=== PATIENT | female | born 1980 | race Caucasian/White ===

== ENCOUNTER 2020-05-18 18:55 | Observation (INO) | payer OTHER, SELFPAY ==
[2020-05-18] VITALS (11 sets, daily range): BP systolic 130–186; BP diastolic 87–105; PULSE 97–141; RESP 15–22; TEMP 37.7–38.8; O2SAT 97–100; BMI 21.0; BMI 22.4
--- NOTE | 2020-05-18 19:07 | ECG_ITS ---
APPROVED REPORT Exam: Resting ECG HR:136 bpm ECG Measurements Heart Rate 136 AXES [place] 128 P 57 QRSd 78 QRS 71 QT 270 T 46 QTc 406 <Conclusion> Sinus tachycardia Otherwise normal ECG Electronically signed by : Mark Mejia, 05/20/2020 20:00:36
--- NOTE | 2020-05-18 19:13 | XR_ITS ---
PROCEDURE: XR CHEST PORTABLE CLINICAL HISTORY: back pain, shortness of breath COMPARISON: CR CXR1 CHEST-PORTABLE from 04/09/2015 FINDINGS: The cardiomediastinal silhouette and pulmonary vascularity are within normal limits. The lungs are clear without infiltrates, suspicious nodules, or pleural effusions. Calcified granulomas present in the right upper lobe. Calcified granuloma left upper lobe medially versus vessel. No acute bony abnormalities. IMPRESSION: No acute findings. Dictated by: Don Buenrostro MD 05/18/2020 22:02 Don Buenrostro MD in [place] 05/18/2020 22:02
--- NOTE | 2020-05-18 19:22 | HMH.EDGENADL ---
ED Disposition Clinical Impression: COVID-19, Tachycardia UTI (urinary tract infection) Qualifiers: Urinary tract infection type: acute cystitis Hematuria presence: without hematuria Qualified Code(s): N30.00 - Acute cystitis without hematuria Disposition: Admitted as Observation Condition on Discharge: Fair Referrals: Nitesh Ponce [Primary Care Provider] - Time of Disposition: 21:27 - Critical Care Critical Care Time: No Attestation: On 05/18/20, the high probability of a clinically significant, sudden or life threatening deterioration of the following system(s) required my full and direct attention, intervention and personal management. The time I documented below is in addition to time spent performing reported procedures but includes the following listed in this critical care notation. Medical Decision Making - Medical Records Medical records reviewed: Yes: I reviewed the patient's medical records. - Hi Inquiry Pt receiving controlled substance: No Vital Signs: 05/18/20 19:08 05/18/20 19:30 05/18/20 20:00 Temperature 101.1 F H Temperature Source Oral Pulse Rate [Right Radial] 141 H 136 H 126 H Respiratory Rate 15 22 22 Blood Pressure [Right Arm] 186/105 H 159/103 H 149/101 H Blood Pressure Mean [Right Arm] 132 121 117 Blood Pressure Source [Right Arm] Automatic Cuff Automatic Cuff Blood Pressure Position [Right Arm] Supine Supine 02 Sat by Pulse Oximetry 99 99 100 Oxygen Delivery Method Room Air Room Air Room Air 05/18/20 20:20 05/18/20 20:42 Temperature 101.9 F H 101.8 F H Temperature Source Oral Oral Pulse Rate [Right Radial] 124 H 120 H Respiratory Rate 20 16 Blood Pressure [Right Arm] 149/100 H 150/98 H Blood Pressure Mean [Right Arm] 116 115 Blood Pressure Source [Right Arm] Automatic Cuff Automatic Cuff Blood Pressure Position [Right Arm] Sitting Sitting 02 Sat by Pulse Oximetry 98 99 Oxygen Delivery Method Room Air Room Air - Lab Data Lab Results 05/18/20 19:15: WBC 12.6 H, RBC 3.66 L, Hgb 10.0 L, Hct 31.0 L, MCV 84.9, MCH 27.5, MCHC 32.4, RDW 14.1, Plt Count 359, MPV 7.1 L, Neut % (Auto) 86.5 H, Lymph % (Auto) 8.2 L, [place] % (Auto) 5.1, Eos % (Auto) 0.2, Baso % (Auto) 0.1, Neut # (Auto) 10.9 H, Lymph # (Auto) 1.0, [place] # (Auto) 0.6, Eos # (Auto) 0.0, Baso # (Auto) 0.0, Total Counted 100, Neutrophils % (Manual) 83 H, Band Neutrophils % 10.0 H, Lymphocytes % (Manual) 6 L, Monocytes % (Manual) 1 L, Platelet Estimate Normal, RBC Morphology Normal, Rouleaux 2+ 05/18/20 19:15: Sodium 134 L, Potassium 3.3 L, Chloride 97 L, Carbon Dioxide 28, Anion Gap 12.3, BUN 5 L, Creatinine 0.70, Estimated Creat Clear 91, Estimated GFR 93, Est GFR ( Amer) 112, Glucose 119 H, Calcium 9.2, Total Bilirubin 0.4, AST 23, ALT 17, Alkaline Phosphatase 98, Troponin I < 0.01, Total Protein 7.2, Albumin 3.7, Globulin 3.5 H, Albumin/Globulin Ratio 1.1 05/18/20 19:15: Lactate 1.4 05/18/20 19:15: Urine Color Yellow, Urine Appearance Cloudy, Urine pH 7.5, Ur Specific [place] 1.020, Urine Protein Negative, Urine Glucose (UA) Negative, Urine Ketones Negative, Urine Blood Negative, Urine Nitrate Negative, Urine Bilirubin Negative, Urine Urobilinogen 0.2, Ur Leukocyte Esterase 1+ A, Urine WBC 10-20, Ur Squamous Epith Cells 10-20, Urine Bacteria 4+ 05/18/20 19:15: Urine HCG, Qual Negative 05/18/20 19:15: SARS-CoV-2 IgG Ab (Rapid) Positive A, SARS-CoV-2 IgM Ab (Rapid) Negative Result diagrams: 05/18/20 19:15 05/18/20 19:15 Orders (Tests/Meds): ED MEDICATIONS Generic Name Dose Route Start Last Admin Trade Name Freq PRN Reason Stop Dose Admin Sodium Chloride 1,000 mls @ 999 mls/hr 05/18/20 19:15 05/18/20 19:17 Sod Chlor 0.9% 1000ml Bag IV 05/18/20 20:15 999 mls/hr .Q1H1M JOSÉ MIGUEL Administration Sodium Chloride 1,000 mls @ 999 mls/hr 05/18/20 20:30 05/18/20 20:24 Sod Chlor 0.9% 1000ml Bag IV 05/18/20 21:30 999 mls/hr .Q1H1M JOSÉ MIGUEL Administration Ceftriaxone Sodium 1 gm/ 50 mls @ 100 mls/hr
--- NOTE | 2020-05-18 19:26 | PC.NURSE ---
pt placed on costume maker, vitals q 30, bed side toliet at bedside, call light given.
[2020-05-18 19:35] LABS: Microscopic, Urine URINE MICROSCOPIC (MICROSCOPIC)
[2020-05-18 19:41] LABS: Appearance,Urine CLOUDY (Clear); Bilirubin,Urine Negative (Negative); Blood, Urine Negative (Negative); Color,Urine YELLOW (Yellow); Glucose,Urine (UA) Negative (Negative); Ketones,Urine Negative (Negative); Leukocyte Esterase,Urine 1+ (Negative); Nitrate,Urine Negative (Negative); PH,Urine 7.5 (5.0-8.5); Protein,Urine Negative (Negative); Urobilinogen,Urine 0.2 EU/dl (0.2)
[2020-05-18 19:42] LABS: Basophils % 0.1 % (0.1-2.0); Eosinophils % 0.2 % (0.1-12.0); Lymphocytes % 8.2 % (10-50); Mean Corpuscular HGB Conc 32.4 g/dL (31.8-35.4); Mean Corpuscular Hemoglobin 27.5 pg (27.0-31.2); Mean Corpuscular Volume 84.9 fl (81-99); Mean Platelet Volume 7.1 fl (7.4-10.4); Monocytes # 0.6 K/mm3 (0.1-1.0); Monocytes % 5.1 % (1.7-9.3); Neutrophils # 10.9 K/mm3 (1.8-7.8); Neutrophils % 86.5 % (37.0-80.0); Platelet Count 359 K/mm3 (142-424); Red Blood Count 3.66 M/mm3 (4.20-5.40); Red Cell Distribution Width 14.1 % (11.5-17.5); White Blood Count 12.6 K/mm3 (4.8-10.8)
[2020-05-18 19:43] LABS: MANUAL DIFFERENTIAL MANUAL DIFFERENTIAL (MANUAL DIFF)
[2020-05-18 19:48] LABS: Bacteria,Urine 4+ /lpf
[2020-05-18 19:49] LABS: Urine Pregnancy, HCG Qual. Negative (Negative)
[2020-05-18 19:59] LABS: Alanine Aminotransferase 17 U/L (12-78); Albumin Level 3.7 g/dl (3.5-5.0); Albumin/Globulin Ratio 1.1 (1.1-1.8); Alkaline Phosphatase 98 U/L (38-126); Anion Gap 12.3 mEq/L (5-15); Aspartate Amino Transferase 23 U/L (14-36); Bilirubin,Total 0.4 mg/dl (0.2-1.3); Blood Urea Nitrogen 5 mg/dl (7-17); Calcium 9.2 mg/dl (8.4-10.2); Carbon Dioxide 28 mmol/L (22.0-30.0); Chloride 97 mmol/L (98-107); Creatinine Clearance Estimated 91 mL/min (50-200); Estimated Glomerular Filt Rate 93 ml/min (>60); GFR (African American) 112 ML/MIN (>60); Globulin 3.5 g/dL (1.3-3.2); Glucose 119 mg/dl (74-100); Lactic Acid 1.4 mmol/L (0.7-2.1); Potassium 3.3 mmoL/L (3.5-5.1); Sodium 134 mmol/L (136-145); Total Protein,Serum 7.2 g/dl (6.3-8.2)
[2020-05-18 20:13] LABS: Lymphocytes % 6 % (10-50); Monocytes % 1 % (2-9); Neutrophils % 83 % (42-76); Platelet Estimate Normal; RBC Morphology Normal; Rouleaux 2+; Total Cells Counted 100; Troponin I < 0.01 ng/ml (0.00-0.034)
[2020-05-18 20:16] LABS: Coronavirus 19 IgG Antibody Positive (Negative); Coronavirus 19 IgM Antibody Negative (Negative)
--- NOTE | 2020-05-18 21:15 | PC.NURSE ---
Dr. Stevenson smith
--- NOTE | 2020-05-18 21:21 | PC.NURSE ---
speaking with Dr. Gamino who advised he wasn't on for service and that it was Dr. Travis. Dr. Harris paged at this time
--- NOTE | 2020-05-18 21:23 | PC.NURSE ---
speaking with Dr. Harris
[2020-05-19] VITALS (8 sets, daily range): BP systolic 112–144; BP diastolic 68–94; PULSE 93–110; RESP 16–22; TEMP 37–38.1; O2SAT 96–99; BMI 22.5
--- NOTE | 2020-05-19 04:12 | PC.NURSE ---
pt has rested well this shift. pt is A&Ox4 and ambulates independently t/o room. pt has tolerated RA appropriately with o2 sats in the upper 90's-100. Lung sounds are clear t/o other than BL bases have fine crackles. Pt has c/o nausea x1 this shift, PRN meds administered per MAR. Pt has c/o LUDWIG x1 this shift PRN meds administered per MAR. Vital signs have remained stables with episodes of tachycardia at time. Pt has had an excellent appetite, requesting multiple snacks and drinks this shift. Call light is within reach. No other complaints or acute changes at this time. Will continue to monitor.
[2020-05-19 06:52] LABS: Basophils % 0.1 % (0.1-2.0); Eosinophils % 0.2 % (0.1-12.0)
[2020-05-19 07:00] LABS: Chloride 107 mmol/L (98-107); Lymphocytes # 1.1 K/mm3 (0.7-4.5); Lymphocytes % 8.2 % (10-50); Mean Corpuscular HGB Conc 32.5 g/dL (31.8-35.4); Mean Corpuscular Hemoglobin 28.2 pg (27.0-31.2); Mean Platelet Volume 7.7 fl (7.4-10.4); Monocytes # 1.1 K/mm3 (0.1-1.0); Monocytes % 7.9 % (1.7-9.3); Neutrophils # 11.4 K/mm3 (1.8-7.8); Neutrophils % 83.7 % (37.0-80.0); Platelet Count 284 K/mm3 (142-424); Potassium 3.6 mmoL/L (3.5-5.1); Red Cell Distribution Width 14.3 % (11.5-17.5); Sodium 137 mmol/L (136-145); White Blood Count 13.6 K/mm3 (4.8-10.8)
[2020-05-19 07:03] LABS: Blood Urea Nitrogen 4 mg/dl (7-17); Creatinine Clearance Estimated 106 mL/min (50-200); Estimated Glomerular Filt Rate 111 ml/min (>60); GFR (African American) 134 ML/MIN (>60)
[2020-05-19 07:04] LABS: Anion Gap 9.6 mEq/L (5-15); Carbon Dioxide 24 mmol/L (22.0-30.0); Glucose 115 mg/dl (74-100)
[2020-05-19 07:08] LABS: Hemoglobin 8.8 g/dL (12.2-16.2)
[2020-05-19 07:41] LABS: Calcium 8.2 mg/dl (8.4-10.2)
--- NOTE | 2020-05-19 08:40 | HMH.ACPN2 ---
Internal Medicine - PN: Subj *Date: 05/19/20 *Time: 08:40 Interval history: Patient came to ER last night complaining of weakness and pain in legs and back associated with fever. She was diagnosed with Covid 19 on or about 05/10/20. states she was exposed at a support group meeting earlier in the month. Pt received Rocephin, IVF and antipyretics in the ER and is feeling better now. Ate breakfast this morning and would like to go home later today if possible Exam Vital signs and Labs for Last 24 Hours: Temp Pulse Resp BP Pulse Ox 99.5 F 106 H 20 119/90 96 05/19/20 07:57 05/19/20 07:57 05/19/20 07:57 05/19/20 07:57 05/19/20 08:00 Laboratory Results - last 24 hr 05/18/20 19:15: WBC 12.6 H, RBC 3.66 L, Hgb 10.0 L, Hct 31.0 L, MCV 84.9, MCH 27.5, MCHC 32.4, RDW 14.1, Plt Count 359, MPV 7.1 L, Neut % (Auto) 86.5 H, Lymph % (Auto) 8.2 L, [place] % (Auto) 5.1, Eos % (Auto) 0.2, Baso % (Auto) 0.1, Neut # (Auto) 10.9 H, Lymph # (Auto) 1.0, [place] # (Auto) 0.6, Eos # (Auto) 0.0, Baso # (Auto) 0.0, Total Counted 100, Neutrophils % (Manual) 83 H, Band Neutrophils % 10.0 H, Lymphocytes % (Manual) 6 L, Monocytes % (Manual) 1 L, Platelet Estimate Normal, RBC Morphology Normal, Rouleaux 2+ 05/18/20 19:15: Sodium 134 L, Potassium 3.3 L, Chloride 97 L, Carbon Dioxide 28, Anion Gap 12.3, BUN 5 L, Creatinine 0.70, Estimated Creat Clear 91, Estimated GFR 93, Est GFR ( Amer) 112, Glucose 119 H, Calcium 9.2, Total Bilirubin 0.4, AST 23, ALT 17, Alkaline Phosphatase 98, Troponin I < 0.01, Total Protein 7.2, Albumin 3.7, Globulin 3.5 H, Albumin/Globulin Ratio 1.1 05/18/20 19:15: Lactate 1.4 05/18/20 19:15: Urine Color Yellow, Urine Appearance Cloudy, Urine pH 7.5, Ur Specific [place] 1.020, Urine Protein Negative, Urine Glucose (UA) Negative, Urine Ketones Negative, Urine Blood Negative, Urine Nitrate Negative, Urine Bilirubin Negative, Urine Urobilinogen 0.2, Ur Leukocyte Esterase 1+ A, Urine WBC 10-20, Ur Squamous Epith Cells 10-20, Urine Bacteria 4+ 05/18/20 19:15: Urine HCG, Qual Negative 05/18/20 19:15: SARS-CoV-2 IgG Ab (Rapid) Positive A, SARS-CoV-2 IgM Ab (Rapid) Negative 05/19/20 06:40: WBC 13.6 H, RBC 3.10 L, Hgb 8.8 L D, Hct 27.0 L, MCV 87.0, MCH 28.2, MCHC 32.5, RDW 14.3, Plt Count 284, MPV 7.7, Neut % (Auto) 83.7 H, Lymph % (Auto) 8.2 L, [place] % (Auto) 7.9, Eos % (Auto) 0.2, Baso % (Auto) 0.1, Neut # (Auto) 11.4 H, Lymph # (Auto) 1.1, [place] # (Auto) 1.1 H, Eos # (Auto) 0.0, Baso # (Auto) 0.0 05/19/20 06:40: Sodium 137, Potassium 3.6, Chloride 107, Carbon Dioxide 24, Anion Gap 9.6, BUN 4 L, Creatinine 0.60, Estimated Creat Clear 106, Estimated GFR 111, Est GFR ( Amer) 134, Glucose 115 H, Calcium 8.2 L D I & O for Last 24 hours: Intake & Output 05/16/20 05/17/20 05/18/20 05/19/20 23:59 23:59 23:59 23:59 Intake Total 1788 / 1788 Output Total 950 / 950 Balance 838 / 838 Weight 119 lb 119 lb 3 oz Microbiology Reports for the Last 24 Hours: Microbiology 05/18/20 19:15 Urine,Clean Catch Urine Culture - Preliminary Gram Negative Rods - Constitutional no acute distress - *Routine HEENT Exam Head: Present: normocephalic Eye: Present: EOMI, PERRL ENT: Present: mucous membranes moist - *Routine Neck Exam Present: supple. Absent: lymphadenopathy - *Routine Respiratory Exam Present: CTA bilaterally - *Routine Cardiovascular Exam Present: RRR, tachycardia (HR 110) - *Routine Abdominal Exam Present: soft, normoactive bowel sounds. Absent: tenderness - *Routine Extremities Exam Absent: cyanosis, clubbing, edema - *Routine Skin Exam Present: warm. Absent: rash - *Routine Neurological Exam Present: alert, oriented X3 Assessment and Plan (1) SIRS (systemic inflammatory response syndrome) Current visit: Yes Status: Acute Category: Medical Code(s): R65.10 - Systemic inflammatory response syndrome (SIRS) of non-infectious origin without acute organ dysfunction
--- NOTE | 2020-05-19 10:43 | PC.NURSE ---
noticed er admit order stated ICU. verified with md that it was supposed to be medsurg overflow/covid positive
--- NOTE | 2020-05-19 12:02 | HMH.HPDC ---
General - General Admission date:: 05/18/20 Discharge date: 05/19/20 *Admission Date: 05/18/20 *Chief complaint: Fever *History of present illness: 40 year old female patient of Dr. Nitesh Ponce, presented to [facility] ER last night complaining of fever associated with muscle aches in her legs and back and feeling week. Patient reports she tested positive for Covid 19 on May 10. She states she was exposed at a support group meeting earlier in the month. She had been fairly symptom free until the past few days when she began to have fever and body aches and a slight cough. She denies sore throat and shortness of breath. [facility] History Medical History: Reports:: Gastroesophageal Reflux Disease(GERD) Denies:: Cancer, Diabetes Mellitus Type 1, Diabetes Mellitus Type 2 *Have you ever received a pneumonia vaccine?: No *Have you received a flu vaccine this season?: No Other Medical History: Reports: Anemia, Other (narcotic addiction, h/o suboxone treatment) Other Surgeries: Yes: , Other (nasal) - *Social History Smoking Status: Current every day smoker Tobacco Type: cigarettes # Packs/Day (cigarettes): 1 Alcohol Intake: former Alcohol Intake Frequency:: holidays/special occasions only Substance Use Type: marijuana, crack/cocaine, painkillers, prescription drug *Occupational Status:: employed *Travel in the last 8 weeks: None - Psychiatric History Expresses thoughts of harming self/others: None Pschychiatric History:: Reports:: Bipolar Disorder Family Hx:: Anemia, Coronary Artery Disease, Heart Attack, Hyperlipidemia, Hypertension, Substance abuse, Alcoholism Review of Systems - Constitutional Reports body ache(s) - Eyes Denies blurry vision - ENT Denies difficulty swallowing - *Cardiovascular Reports fast heart rate - *Respiratory Reports shortness of breath, Denies chest congestion, Denies cough - *Gastrointestinal Denies abdominal pain - *Genitourinary Reports urinary urgency - *Musculoskeletal Reports back pain, Reports body aches - Integumentary/Breasts Denies rash - *Neurologic Denies dizziness, Denies headache(s) - Hematologic/Lymphatic Denies easy bruising Exam Vital signs and Labs for Last 24 Hours: Temp Pulse Resp BP Pulse Ox 99.5 F 106 H 20 119/90 96 05/19/20 07:57 05/19/20 07:57 05/19/20 07:57 05/19/20 07:57 05/19/20 08:00 Laboratory Results - last 24 hr 05/18/20 19:15: WBC 12.6 H, RBC 3.66 L, Hgb 10.0 L, Hct 31.0 L, MCV 84.9, MCH 27.5, MCHC 32.4, RDW 14.1, Plt Count 359, MPV 7.1 L, Neut % (Auto) 86.5 H, Lymph % (Auto) 8.2 L, [place] % (Auto) 5.1, Eos % (Auto) 0.2, Baso % (Auto) 0.1, Neut # (Auto) 10.9 H, Lymph # (Auto) 1.0, [place] # (Auto) 0.6, Eos # (Auto) 0.0, Baso # (Auto) 0.0, Total Counted 100, Neutrophils % (Manual) 83 H, Band Neutrophils % 10.0 H, Lymphocytes % (Manual) 6 L, Monocytes % (Manual) 1 L, Platelet Estimate Normal, RBC Morphology Normal, Rouleaux 2+ 05/18/20 19:15: Sodium 134 L, Potassium 3.3 L, Chloride 97 L, Carbon Dioxide 28, Anion Gap 12.3, BUN 5 L, Creatinine 0.70, Estimated Creat Clear 91, Estimated GFR 93, Est GFR ( Amer) 112, Glucose 119 H, Calcium 9.2, Total Bilirubin 0.4, AST 23, ALT 17, Alkaline Phosphatase 98, Troponin I < 0.01, Total Protein 7.2, Albumin 3.7, Globulin 3.5 H, Albumin/Globulin Ratio 1.1 05/18/20 19:15: Lactate 1.4 05/18/20 19:15: Urine Color Yellow, Urine Appearance Cloudy, Urine pH 7.5, Ur Specific [place] 1.020, Urine Protein Negative, Urine Glucose (UA) Negative, Urine Ketones Negative, Urine Blood Negative, Urine Nitrate Negative, Urine Bilirubin Negative, Urine Urobilinogen 0.2, Ur Leukocyte Esterase 1+ A, Urine WBC 10-20, Ur Squamous Epith Cells 10-20, Urine Bacteria 4+ 05/18/20 19:15: Urine HCG, Qual Negative 05/18/20 19:15: SARS-CoV-2 IgG Ab (Rapid) Positive A, SARS-CoV-2 IgM Ab (Rapid) Negative 05/19/20 06:40: WBC 13.6 H, RBC 3.10 L, Hgb 8.8 L D, Hct 27.0 L, MCV 87.0, MCH 28.2, MCHC 32.5, RDW 14.3, Plt Count 284, MPV 7.7,
[2020-05-20 08:51] LABS: Covid-19 Nasal PCR Sendout UK Detected
== END 2020-05-19 13:35 | disposition home or self-care (01) ==
LOC: ER 21:30 → ICU 22:48
PROVIDERS: Admitting Provider Family Medicine; Emergency Provider Emergency Medicine; PCP Pediatrics; Visit Provider Family Medicine
DX: U07.1 COVID-19 (principal); Z72.0 Tobacco use; N39.0 Urinary tract infection, site not specified; R65.10 Systemic inflammatory response syndrome (SIRS) of non-infectious origin without acute organ dysfunction
CPT/HCPCS: 71045; 80048; 80053; 81001; 81025; 83605; 84484; 85007; 85025; 86328; 87040; 87086; 87088; 87186; 93005; 96365; 96366; 96367; 96375; 99285; G0378; J2405; U0003

== ENCOUNTER 2021-02-22 19:54 | Emergency (ER) | payer OTHER, SELFPAY ==
[2021-02-22 20:05] VITALS: BP 142/97; PULSE 105; RESP 20; TEMP 38.1; O2SAT 98; BMI 20.7
[2021-02-22 20:38] LABS: Color,Urine Yellow (Yellow)
[2021-02-22 20:39] LABS: Apearance,Urine Cloudy (Clear); Bilirubin,Urine Negative (Negative); Blood, Urine Negative (Negative); Glucose,Urine (UA) Negative (Negative); Ketones,Urine TRACE (Negative); PH,Urine 5.5 (5.0-8.5); Protein,Urine Negative (Negative); Specific Gravity, Urine >= 1.030 (1.005-1.030); UTC Leukocyte Esterase,Urine Negative (Negative); UTC Nitrate,Urine Negative (Negative); Urobilinogen,Urine 1 EU/dl (0.2)
--- NOTE | 2021-02-22 20:45 | HMH.EDUTC ---
[facility] [place]ression: Bacterial vaginal infection Disposition: Home, Self-Care Condition on Discharge: Good Instructions: Bacterial Vaginosis, DI for Bacterial Vaginosis Additional Instructions: follow up on labs follow up with pcp about ketones in urine Prescriptions: metroNIDAZOLE [Metrogel-Vaginal] 70 gm VG DIRECTED 5 Days #1 gel.w.appl Transmission Status: Pending to [id number] Referrals: Nitesh Ponce [Primary Care Provider] - Time of Disposition: 21:02 Medical Decision Making - Hi Inquiry Pt receiving controlled substance: No Vital Signs: 02/22/21 20:05 Temperature 100.5 F H Temperature Source Temporal Artery Scan Pulse Rate [Right Brachial] 105 H Respiratory Rate 20 Blood Pressure [Right Arm] 142/97 H Blood Pressure Mean [Right Arm] 112 Blood Pressure Source [Right Arm] Automatic Cuff Blood Pressure Position [Right Arm] Sitting 02 Sat by Pulse Oximetry 98 Oxygen Delivery Method Room Air - Lab Data Lab Results 02/22/21 20:34: Urine Color Yellow, Urine Appearance Cloudy, Urine pH 5.5, Ur Specific [place] >= 1.030, Urine Protein Negative, Urine Glucose (UA) Negative, Urine Ketones Trace, Urine Blood Negative, Urine Nitrate Negative, Urine Bilirubin Negative, Urine Urobilinogen 1, Ur Leukocyte Esterase Negative [facility] [place] - General Chief complaint: [facility] Stated complaint: possible vaginal infection Time Seen by Provider: 02/22/21 20:45 Mode of Arrival: Ambulatory Source of Information: Patient Limitations: No Limitations Description of Symptoms (Recalled from Triage Doc. by RN): PATIENT C/O ITCHING, FISHY SMELL, AND YELLOW DISCHARGE FROM VAGINAL AREA X 4 DAYS HEENT Symptoms (Recalled from RN notes): No Resp Symptoms (Recalled from RN notes): No Skin Symptoms (Recalled from RN notes): No MS Symptoms (Recalled from RN notes): No Functional Status (Recalled from RN notes): WNL - History of Present Illness Provider Complaint: 41 yr old female presnets for vagianl discharge that has a fishy smell and green color. pt states hx of bv and feels like it did then. pt states she did have a break from and wants to make sure. - Related Data Previous Rx's Medication Instructions Recorded metroNIDAZOLE [Metrogel-Vaginal] 70 gm VG DIRECTED 5 Days #1 02/22/21 gel.w.appl Allergies Allergy/AdvReac Type Severity Reaction Status Date / Time No Known Allergies Allergy Unverified 05/19/20 08:13 - Worker's Comp Is this a Worker's Comp case?: No [facility] History - Hepatitis A Screen Drug use history?: No High risk sexual behaviors?: No History of sexually transmitted infection?: No Currently employed?: No Childcare worker?: No Do you have indoor plumbing?: Yes Do you have electricity?: Yes Attestation statement:: This patient has been screened for Hepatitis A risk factors. I have reviewed the patient's past medical history: Yes Medical History: Reports:: Gastroesophageal Reflux Disease(GERD) Denies:: Cancer, Diabetes Mellitus Type 1, Diabetes Mellitus Type 2 Other Medical History: Reports: Anemia, Other (narcotic addiction, h/o suboxone treatment) Other Surgeries: Yes: , Other (nasal) - Social History Smoking Status: Current every day smoker Tobacco Type: cigarettes # Packs/Day (cigarettes): 1 Alcohol Intake: never Alcohol Intake Frequency:: holidays/special occasions only Substance Use Type: marijuana, crack/cocaine, painkillers, prescription drug Occupational Status: other - Psychiatric History Pschychiatric History:: Reports:: Bipolar Disorder Family Hx:: Anemia, Coronary Artery Disease, Heart Attack, Hyperlipidemia, Hypertension, Substance abuse, Alcoholism ROS Obtained: Yes Systems reviewed as appropriate & no additional complaints - Constitutional Constitutional: Reports system reviewed and no additional complaints, except as docu, Denies lethargy - Eyes Eyes: Reports system reviewed and no addition
[2021-02-22 20:58] VITALS: BP 142/97; PULSE 105; RESP 20; TEMP 38.1; O2SAT 98
[2021-02-25 17:48] LABS: Neisseria gonorrhoeae, NAA Negative (Negative)
== END 2021-02-22 21:05 | disposition home or self-care (01) ==
PROVIDERS: Emergency Provider Nurse Practitioner Family; PCP Pediatrics
DX: N76.0 Acute vaginitis (principal); K21.9 Gastro-esophageal reflux disease without esophagitis; F17.210 Nicotine dependence, cigarettes, uncomplicated
CPT/HCPCS: 81003; 87210; 87491; 87591; 99202; G0463

== ENCOUNTER 2021-08-01 14:15 | Emergency (ER) | payer OTHER, SELFPAY ==
[2021-08-01 16:02] VITALS: BP 0/0; PULSE 0; RESP 0; TEMP -17.7; TEMP 0
== END 2021-08-01 16:03 | disposition left against medical advice (07) ==
PROVIDERS: Emergency Provider Nurse Practitioner Family; PCP Emergency Medicine
DX: Z53.21 Procedure and treatment not carried out due to patient leaving prior to being seen by health care provider (principal)

== ENCOUNTER 2022-03-29 16:53 | Emergency (ER) | payer OTHER, SELFPAY ==
[2022-03-29 17:20] VITALS: BP 141/96; PULSE 102; RESP 18; TEMP 36.8; O2SAT 98; BMI 23.6
[2022-03-29 17:31] LABS: Apearance,Urine Clear (Clear); Bilirubin,Urine Negative (Negative); Blood, Urine Negative (Negative); Color,Urine Yellow (Yellow); Glucose,Urine (UA) Negative (Negative); Ketones,Urine Negative (Negative); PH,Urine 6.5 (5.0-8.5); Protein,Urine Negative (Negative); UTC Leukocyte Esterase,Urine Negative (Negative); UTC Nitrate,Urine Negative (Negative); Urobilinogen,Urine 0.2 EU/dl (0.2)
--- NOTE | 2022-03-29 17:37 | HMH.EDUTC ---
[facility] [place] Clinical Impression: Exposure to COVID-19 virus UTI (urinary tract infection) Qualifiers: Urinary tract infection type: acute cystitis Hematuria presence: without hematuria Qualified Code(s): N30.00 - Acute cystitis without hematuria Disposition: Home, Self-Care Condition on Discharge: Good Instructions: DI for Urinary Tract Infection (UTI) Additional Instructions: Take all medicine as prescribed until gone You have been tested for COVID19. Please isolate yourself as if you are positive until test results received. Urine culture results should be available Thursday or Thursday Prescriptions: Ciprofloxacin HCl [Cipro 500mg Tab] 500 mg PO BID 5 Days #10 tab Transmission Status: Pending to [id number] Phenazopyridine HCl [Pyridium 200mg Tablet] 200 pow PO TID #6 tab Transmission Status: [id number] Referrals: Macario Magallanes MD [Primary Care Provider] - Time of Disposition: 17:45 Medical Decision Making - Hi Inquiry Pt receiving controlled substance: No Vital Signs: 03/29/22 17:20 Temperature 98.3 F Temperature Source Oral Pulse Rate [Left Brachial] 102 H Respiratory Rate 18 Blood Pressure [Left Arm] 141/96 H Blood Pressure Mean [Left Arm] 111 Blood Pressure Source [Left Arm] Automatic Cuff Blood Pressure Position [Left Arm] Sitting 02 Sat by Pulse Oximetry 98 Oxygen Delivery Method Room Air - Lab Data Lab results reviewed: Yes: I reviewed the patient's lab results. Lab Results 03/29/22 17:18: Urine Color Yellow, Urine Appearance Clear, Urine pH 6.5, Ur Specific [place] 1.020, Urine Protein Negative, Urine Glucose (UA) Negative, Urine Ketones Negative, Urine Blood Negative, Urine Nitrate Negative, Urine Bilirubin Negative, Urine Urobilinogen 0.2, Ur Leukocyte Esterase Negative Orders (Tests/Meds): ORDERS Category Date Time Status Covid-19 Nasal PCR ([facility]) Routine Lab 03/29/22 17:18 [place] [facility] [place] - General Stated complaint: covid test, exposed, poss UTI Time Seen by Provider: 03/29/22 17:41 Mode of Arrival: Ambulatory Source of Information: Patient Limitations: No Limitations Description of Symptoms (Recalled from Triage Doc. by RN): PATIENT C/O BURNING WITH URINATION X 4 DAYS. ALSO REQUESTING COVID TEST D/T EXPOSURE HEENT Symptoms (Recalled from RN notes): No Resp Symptoms (Recalled from RN notes): No Skin Symptoms (Recalled from RN notes): No MS Symptoms (Recalled from RN notes): No Functional Status (Recalled from RN notes): WNL - History of Present Illness Provider Complaint: Dysuria, frequency X 4 days. No fever. No vomiting or diarrhea. Patient exposed to COVID19 4-5 days ago. No symptoms other than a weird taste in her mouth, so would like to be sure. Onset (ago): day(s) (5) Location: abdomen Radiation: non-radiation Quality: burning Relieving factors: none Exacerbating factors: none Associated symptoms: denies other symptoms Treatments prior to arrival: none - Related Data Previous Rx's Medication Instructions Recorded metroNIDAZOLE [Metrogel-Vaginal] 70 gm VG DIRECTED 5 Days #1 02/22/21 gel.w.appl Ciprofloxacin HCl [Cipro 500mg 500 mg PO BID 5 Days #10 tab 03/29/22 Tab] Phenazopyridine HCl [Pyridium 200 pow PO TID #6 tab 03/29/22 200mg Tablet] Allergies Allergy/AdvReac Type Severity Reaction Status Date / Time No Known Allergies Allergy Unverified 05/19/20 08:13 - Worker's Comp Is this a Worker's Comp case?: No [facility] History - Hepatitis A Screen Attestation statement:: This patient has been screened for Hepatitis A risk factors. I have reviewed the patient's past medical history: Yes Medical History: Reports:: Gastroesophageal Reflux Disease(GERD) Denies:: Cancer, Diabetes Mellitus Type 1, Diabetes Mellitus Type 2 Other Medical History: Reports: Anemia, Other (narcotic addiction, h/o suboxone treatment) Other Surgeries: Yes: , Other (nasal)
[2022-03-29 17:48] VITALS: BP 141/96; PULSE 102; RESP 18; TEMP 36.8; O2SAT 98
== END 2022-03-29 17:51 | disposition home or self-care (01) ==
PROVIDERS: Emergency Provider Physician Assistant; PCP Emergency Medicine
DX: N30.00 Acute cystitis without hematuria (principal); R30.0 Dysuria; R35.0 Frequency of micturition; K21.9 Gastro-esophageal reflux disease without esophagitis; D64.9 Anemia, unspecified; F12.90 Cannabis use, unspecified, uncomplicated; F14.90 Cocaine use, unspecified, uncomplicated; Z87.898 Personal history of other specified conditions; Z72.0 Tobacco use
CPT/HCPCS: 81003; 87086; 99212; C9803; G0463; U0003; U0005

== ENCOUNTER 2024-02-24 08:54 | Outpatient (CLI) | payer OTHER, SELFPAY ==
[2024-02-24 18:23] LABS: Basophils % 0.6 % (0.1-2.0); Eosinophils % 0.2 % (0.1-12.0); Hematocrit 44.9 % (37.0-47.0); Lymphocytes # 1.5 K/mm3 (0.7-4.5); Lymphocytes % 23.3 % (10-50); Mean Corpuscular HGB Conc 31.1 g/dL (31.8-35.4); Mean Corpuscular Hemoglobin 29.2 pg (27.0-31.2); Mean Corpuscular Volume 93.9 fl (81-99); Mean Platelet Volume 9.3 fl (7.4-10.4); Monocytes # 0.4 K/mm3 (0.1-1.0); Monocytes % 5.6 % (1.7-9.3); Neutrophils # 4.4 K/mm3 (1.8-7.8); Neutrophils % 70.3 % (37.0-80.0); Platelet Count 274 K/mm3 (142-424); Red Blood Count 4.79 M/mm3 (4.20-5.40); White Blood Count 6.2 K/mm3 (4.8-10.8)
[2024-02-24 19:06] LABS: Alanine Aminotransferase 24 U/L (12-78); Albumin Level 4.2 g/dl (3.5-5.0); Albumin/Globulin Ratio 1.4 (1.1-1.8); Alkaline Phosphatase 65 U/L (38-126); Anion Gap 13.4 mEq/L (5-15); Aspartate Amino Transferase 33 U/L (14-36); Bilirubin,Total 0.5 mg/dl (0.2-1.3); Blood Urea Nitrogen 11 mg/dl (7-17); Calcium 9.9 mg/dl (8.4-10.2); Carbon Dioxide 24 mmol/L (22.0-30.0); Chloride 104 mmol/L (98-107); Cholesterol 201 mg/dl (140-200); Estimated Glomerular Filt Rate 109 ml/min (>60); GFR (African American) 131 ML/MIN (>60); Glucose 98 mg/dl (74-100); HDL Cholesterol 99 mg/dl (40-60); Potassium 4.4 mmoL/L (3.5-5.1); Sodium 137 mmol/L (136-145); Total Protein,Serum 7.2 g/dl (6.3-8.2); Triglycerides 67 mg/dl (30-150); VLDL Cholesterol 13 mg/dL (0-40)
[2024-02-24 19:16] LABS: Direct LDL Cholesterol 91.11 mg/dL (100-129)
[2024-02-24 19:21] LABS: 25-OH Vitamin D, Total 30.3 ng/mL (30-100)
[2024-02-24 19:35] LABS: Thyroid Stimulating Hormone 1.74 uIU/mL (0.465-4.68)
[2024-02-24 20:02] LABS: Hemoglobin A1C 5.1 % (4.0-6.0)
== END 2024-02-24 23:59 | disposition home or self-care (01) ==
LOC: LAB.DROPOF 02-26 08:55
PROVIDERS: Visit Provider Family Medicine
DX: R00.0 Tachycardia, unspecified (principal); D64.9 Anemia, unspecified; Z68.23 Body mass index [BMI] 23.0-23.9, adult
CPT/HCPCS: 80050; 80053; 80061; 82306; 83036; 84443; 85025

== ENCOUNTER 2024-06-13 03:59 | Emergency (ER) | payer MEDICAID, SELFPAY ==
[2024-06-13 04:01] VITALS: BP 156/102; PULSE 94; RESP 16; TEMP 37.1; O2SAT 99; BMI 21.9
[2024-06-13 04:30] VITALS: BP 131/86; PULSE 105; O2SAT 99
[2024-06-13 04:36] LABS: Urine Pregnancy, HCG Qual. Negative (Negative)
[2024-06-13 04:37] LABS: Appearance,Urine CLEAR (Clear); Bilirubin,Urine Negative (Negative); Blood, Urine Negative (Negative); Color,Urine YELLOW (Yellow); Glucose,Urine (UA) Negative (Negative); Ketones,Urine Negative (Negative); Leukocyte Esterase,Urine 1+ (Negative); Microscopic, Urine URINE MICROSCOPIC (MICROSCOPIC); Nitrate,Urine Negative (Negative); Protein,Urine Negative (Negative); Specific Gravity, Urine <= 1.005 (1.005-1.030); Urobilinogen,Urine 0.2 EU/dl (0.2)
[2024-06-13 04:56] LABS: Bacteria,Urine Trace /lpf; Squamous Epithelial Cell,Urine Occasional #/hpf (0-5)
[2024-06-13] MEDS: AZITHROMYCIN 250MG TABLET 1000 MG PO (05:16)
[2024-06-13] MEDS: metroNIDAZOLE 500 MG TABLET PO (05:17)
[2024-06-13] MEDS: cefTRIAXone 500MG VIAL 500 MG IM (05:29)
[2024-06-13] MEDS: LIDOCAINE 1% 10ML MDV 1.8 ML IM (05:31)
[2024-06-13 05:34] VITALS: BP 133/85; PULSE 87; RESP 18; TEMP 37; O2SAT 97
--- NOTE | 2024-06-13 06:34 | HMH.EDGENADL ---
Discharge Plan Disposition Patient Disposition: Home, Self-Care Condition: Good Prescriptions Prescriptions: New metronidazole 500 mg tablet 500 mg PO BID 7 Days Qty: 14 0RF No Action [id number]-psawlklg-opupifnmaz 400-100-100 mg tablet 1 tab PO DAILY Rx Instructions: must administer with a meal/food bupropion HCl [Wellbutrin SR] 150 mg tablet sustained-release 12 hr 150 mg PO DAILY Qty: 30 2RF Referrals Follow up/Referrals: Shanda Herron APRN [Primary Care Provider] - See instructions Activity Restrictions/Add. Instructions Additional Instructions/Restrictions: You were evaluated in the ER and are appropriate for discharge at this time. Take the prescribed antibiotics as directed, do not skip doses, do not stop taking them early. You have been treated for STI, though your test results are still pending. Follow-up with your primary care doctor in a few days for reevaluation. If your STI results are positive, you should encourage all partners to be treated as well. Return to the ER with new, worsening, or otherwise concerning symptoms. Clinical Impressions Clinical Impression: Dysuria, Vaginal discharge Print Language Print Language: Kinyarwanda Discharge ED Provider: Hoang Chawla General Adult HPI General Chief complaint: Urogenital-Female Stated complaint: Pressure,pain,burning with urination Time Seen by Provider: 06/13/24 04:10 Mode of Arrival: Ambulatory Source of Information: Patient Limitations: No Limitations Description of Symptoms (Recalled from ER Triage Doc. by RN): Patient presents to ED with urination that is painful and burning. Patient reports foul odor as well. Patient states she has a new partner and is currently sexually active and has a history with STI's. History of Present Illness HPI narrative: 44-year-old female presents to the ER complaining of dysuria and foul-smelling vaginal discharge. Patient reports new sexual partner and did not use protection. She does have a history of previous bacterial vaginosis reportedly and states her symptoms are similar. She states she has had UTI in the past as well. She denies pain with intercourse. She denies fevers, chills, vomiting. She does report mild loose stool earlier today but nonbloody, nonmelanotic. Patient denies genital itching or lesions. ROS otherwise negative Related Data Home Medications ?Medication ?Instructions ?Recorded ?Confirmed sofosbuvir 400 mg-velpatasvir 100 1 tab PO DAILY 02/24/24 02/24/24 mg-voxilaprevir 100 mg tablet Previous Rx's ?Medication ?Instructions ?Recorded bupropion HCl 150 mg tablet,12 hr 150 mg PO DAILY #30 ea 02/24/24 sustained-release (Wellbutrin SR) metronidazole 500 mg tablet 500 mg PO BID 7 days #14 tabs 06/13/24 Allergies Allergy/AdvReac Type Severity Reaction Status Date / Time No Known Allergies Allergy Verified 02/24/24 11:26 [facility] Disclaimer: The information contained in this section may have been updated after the patient was seen, as this information can be updated by other users. Medical History (Updated 06/13/24 @ 05:16 by Hoang Chawla MD) Hepatitis C Surgical History (Updated 02/24/24 @ 11:28 by Argelia Bone CMA) History of delivery Family History (Updated 02/24/24 @ 11:29 by Argelia Bone CMA) Other Heart attack Hypertension Social History Smoking Status: Current every day smoker tobacco type: cigarettes packs per day: 1 alcohol intake: never substance use type: marijuana, crack/cocaine, painkillers and prescription drug current occupational status: other Travel in the last 8 weeks: None ROS Obtained: Yes All systems reviewed & no additional complaints except as documented Positive ROS per HPI Physical Exam General General appearance: alert and in no apparent distress Head Head exam: atraumatic and normocephalic Eye Eye exam: Present PERRL and EOMI ENT ENT exam: Present mucous membranes moist Neck Neck exam: Present normal inspection and full ROM Chest Chest inspection: Present symmetric chest wall rise Respiratory Respiratory exam: Absent respiratory distress or stridor Cardiovascular Cardiovascular exam: Present regular rate and normal rhythm Abdominal Exam Abdominal exam: Present soft and tenderness (Mild suprapubic tenderness); Absent distention, guarding, rebound or rigidity External exam: Present normal external exam; Absent erythema or lesions Speculum exam: Present vaginal discharge (Small amount of light yellow-green vaginal discharge); Absent erythema or vaginal bleeding Bimanual exam: Present normal bimanual exam; Absent cervical motion tenderness Extremities Exam Extremities exam: Present full ROM Neurological Exam Neurological exam: Present alert and oriented X3; Absent motor sensory deficit Psychiatric Psychiatric exam: Present normal affect and normal mood Skin Skin exam: Present warm and dry Medical Decision Making Medical Records Medical records reviewed: Yes I reviewed the patient's medical records. Screening: Per USPSTF and CDC recommendations, given the prevalence of disease in our region, it is our hospital?s policy to screen for HIV and viral Hepatitis for all patients aged 18 and over and those with ongoing risk factors. MR Comment: Patient evaluated for and treated for bacterial vaginosis in February 2021. Hi Inquiry Pt receiving controlled substance: No Vital Signs: 06/13/24 04:01 06/13/24 04:30 06/13/24 05:34 Temperature 98.7 F 98.6 F Temperature Source Oral Oral Pulse Rate 105 H 87 Pulse Rate [Right Brachial] 94 H Respiratory Rate 16 18 Blood Pressure 131/86 133/85 Blood Pressure [Right Arm] 156/102 H Blood Pressure Mean [Right Arm] 120 Blood Pressure Source Automatic Cuff Blood Pressure Source [Right Arm] Automatic Cuff Blood Pressure Position Supine Blood Pressure Position [Right Arm] Supine 02 Sat by Pulse Oximetry 99 99 Oxygen Delivery Method Room Air Room Air Lab Data Lab Results 06/13/24 04:08: Urine Color Yellow, Urine Appearance Clear, Urine pH 6.0, Ur Specific [place] <= 1.005, Urine Protein Negative, Urine Glucose (UA) Negative, Urine Ketones Negative, Urine Blood Negative, Urine Nitrate Negative, Urine Bilirubin Negative, Urine Urobilinogen 0.2, Ur Leukocyte Esterase 1+ A, Urine RBC None, Urine WBC 5-10, Ur Squamous Epith Cells Occasional, Urine Bacteria Trace, Urine HCG, Qual Negative Orders (Tests/Meds): ED MEDICATIONS Discontinued Medications Generic Name Dose Route Start Last Admin Trade Name Fredyq PRN Reason Stop Dose Admin Azithromycin 1,000 mg 06/13/24 05:07 06/13/24 05:16 Azithromycin 250mg Tablet PO 06/13/24 05:08 1,000 mg ONCE ONE Administration Ceftriaxone Sodium 500 mg 06/13/24 05:30 06/13/24 05:29 Ceftriaxone 500mg Vial IM 06/13/24 05:31 500 mg ONCE ONE Administration Lidocaine HCl 1.4 ml 06/13/24 05:30 Lidocaine 1% 10ml Mdv IM 06/13/24 05:31 ONCE ONE Lidocaine HCl 1.8 ml 06/13/24 05:30 06/13/24 05:31 Lidocaine 1% 10ml Mdv IM 09/23/24 05:31 1.8 ml ONCE ONE Administration Metronidazole 500 mg 06/13/24 05:13 06/13/24 05:17 Metronidazole 500 Mg Tablet PO 06/13/24 05:14 500 mg ONCE ONE Administration ORDERS Category Date Time Status HIV (1&2) Antibody Rapid Stat Lab 06/13/24 04:18 Ordered Hep C Ab with Reflex to RNA Stat Lab 06/13/24 04:18 Ordered Trichomonas Vaginalis, ABNER Stat Lab 06/13/24 04:08 Received Urinalysis and Microscopic Stat Lab 06/13/24 04:08 Completed Urine , HCG Qual. Stat Lab 06/13/24 04:08 Completed Urine Culture Stat Micro 06/13/24 04:08 Received Medical Decision Narrative: In summary, this 44-year-old female presents to the emergency department today with dysuria and abnormal vaginal discharge, concern for STI. On initial evaluation patient is hemodynamically stable, afebrile, physical exam notable for slight yellowish-green vaginal discharge, no lesions, no cervical motion tenderness. Differential diagnosis includes but is not limited to UTI, gonorrhea, chlamydia, trichomoniasis, BV, I considered PID but do not have evidence of this on exam. Based on these concerns, I ordered urinalysis, STI testing. Patient wanted to be tested for STIs but also wanted empiric treatment after further discussion. I believe this is reasonable given her symptoms and findings on exam. Patient received Rocephin, azithromycin, dose of metronidazole in the ER, and prescription for metronidazole which will cover both BV and trichomonas UA with 5-10 WBCs, trace bacteria, nitrate negative, not consistent with infection at this time. Urine culture pending. Patient will not be treated for UTI at this time. Patient is appropriate for discharge. I encouraged her to have any sexual partners follow-up for STI screening to avoid reinfection. Patient was given instructions on symptomatic management, follow up instructions, and return precautions for the emergency department. Patient indicated understanding and was discharged in stable condition. Critical Care Critical Care Time Critical Care Time: No
[2024-06-14 21:27] LABS: Neisseria gonorrhoeae, NAA Negative (Negative)
[2024-06-15 06:28] LABS: Trichomonas Vaginalis, NAA Negative (Negative)
--- NOTE | 2024-06-15 10:28 | EXP.EVENT.NO ---
Patient urine culture came back positive for E. coli. Discharged with Flagyl for STI from previous visit on 06/13. Called patient to inform her of positive urine culture with an organism that will likely not be covered with the antibiotic she was previously prescribed. Called in a prescription for amoxicillin for a 5-day course as E. coli was pansensitive. Left a voicemail for patient as she did not answer.
== END 2024-06-13 05:40 | disposition home or self-care (01) ==
PROVIDERS: Emergency Provider Emergency Medicine; PCP Family Medicine
DX: N39.0 Urinary tract infection, site not specified (principal); B96.29 Other Escherichia coli [E. coli] as the cause of diseases classified elsewhere; R30.0 Dysuria; N89.8 Other specified noninflammatory disorders of vagina
CPT/HCPCS: 81001; 81025; 87086; 87088; 87186; 87491; 87591; 87661; 96372; 99283; J0696

== ENCOUNTER 2024-07-30 20:01 | Emergency (ER) | payer MEDICAID, SELFPAY ==
[2024-07-30 20:03] VITALS: BP 160/109; PULSE 98; RESP 16; TEMP 36.6; O2SAT 100; BMI 22.8
--- NOTE | 2024-07-30 20:14 | HMH.EDGENADL ---
Discharge Plan Disposition Patient Disposition: Home, Self-Care Prescriptions Prescriptions: New metronidazole 500 mg tablet 500 mg PO BID 7 Days Qty: 14 0RF No Action ltfriafhrv-gzwcmdiu-ztpojuvnsz 400-100-100 mg tablet 1 tab PO DAILY Rx Instructions: must administer with a meal/food bupropion HCl [Wellbutrin SR] 150 mg tablet sustained-release 12 hr 150 mg PO DAILY Qty: 30 2RF metronidazole 500 mg tablet 500 mg PO BID 7 Days Qty: 14 0RF amoxicillin 500 mg capsule 500 mg PO BID 5 Days Qty: 10 0RF Referrals Follow up/Referrals: Carrillo Sue DO [Primary Care Provider] - See instructions Activity Restrictions/Add. Instructions Additional Instructions/Restrictions: Call your family doctor to establish care for this visit to the emergency department and schedule follow-up within 48 hours to ensure improvement. If you have any worsening of your condition or any other concerning signs or symptoms, return to the emergency department or your primary care doctor for further evaluation. Flagyl twice daily for 7 days. Clinical Impressions Clinical Impression: Vaginal burning Instructions Patient Instructions: DI for Urinary Tract Infection (UTI), DI for Urinary Tract Infection in Children Print Language Print Language: Turkmen Discharge ED Provider: John Holm General Adult HPI General Chief complaint: Urogenital-Female Stated complaint: Poss UTI,burning with urination Time Seen by Provider: 07/30/24 20:06 History of Present Illness HPI narrative: Please note that above description of symptoms, in this electronic medical record under categorization of recalled from ER triage doctor by RN are reflective of an initial nursing assessment, however, is not reflective of my full history and physical exam that was personally taken and clarified. Consequentially, this preceding description of symptoms, which may include the patient's categorized chief complaint in the EMR, do not reflect my personal clinical impression, and the ultimate description of history of present illness and patient stated complaints should be deferred to this section of the note. Unless stated otherwise or congruent with this section of the note, additional signs, symptoms, or incongruence should be interpreted as inaccurate with my clinical impression. Related Data Home Medications ?Medication ?Instructions ?Recorded ?Confirmed sofosbuvir 400 mg-velpatasvir 100 1 tab PO DAILY 02/24/24 02/24/24 mg-voxilaprevir 100 mg tablet Previous Rx's ?Medication ?Instructions ?Recorded bupropion HCl 150 mg tablet,12 hr 150 mg PO DAILY #30 ea 02/24/24 sustained-release (Wellbutrin SR) metronidazole 500 mg tablet 500 mg PO BID 7 days #14 tabs 06/13/24 amoxicillin 500 mg capsule 500 mg PO BID 5 days #10 caps 06/15/24 metronidazole 500 mg tablet 500 mg PO BID 7 days #14 tabs 07/30/24 Allergies Allergy/AdvReac Type Severity Reaction Status Date / Time No Known Allergies Allergy Verified 02/24/24 11:26 [facility] Disclaimer: The information contained in this section may have been updated after the patient was seen, as this information can be updated by other users. Medical History (Updated 07/30/24 @ 20:49 by John Holm MD) Hepatitis C Surgical History (Updated 02/24/24 @ 11:28 by Argelia Bone CMA) History of delivery Family History (Updated 02/24/24 @ 11:29 by Argelia Bone CMA) Other Heart attack Hypertension Social History Smoking Status: Current every day smoker tobacco type: cigarettes packs per day: 1 alcohol intake: never substance use type: marijuana, crack/cocaine, painkillers and prescription drug current occupational status: other Travel in the last 8 weeks: None Other Medical History Have you received the Flu Vaccine for this season: No Have you received the Pneumonia Vaccine: No ROS Obtained: Yes All systems reviewed & no additional complaints except as documented Physical Exam General General appearance: alert Head Head exam: atraumatic and normocephalic Eye Eye exam: Present normal appearance, PERRL and EOMI Neck Neck exam: Present normal inspection, full ROM and trachea midline Respiratory Respiratory exam: Absent respiratory distress, wheezes, stridor, accessory muscle use or prolonged expiratory phase Cardiovascular Cardiovascular exam: Present other (Pulses equal symmetric in upper and lower extremities) Abdominal Exam Abdominal exam: Present soft; Absent distention, tenderness or pulsatile mass Extremities Exam Extremities exam: Absent edema Back Exam Back exam: Absent CVA tenderness (R) or CVA tenderness (L) Neurological Exam Neurological exam: Present alert, oriented X3 and CN II-XII intact; Absent motor sensory deficit Skin Skin exam: Present warm and dry; Absent diaphoresis or erythema Medical Decision Making Medical Records Medical records reviewed: Yes I reviewed the patient's medical records. Screening: Per USPSTF and CDC recommendations, given the prevalence of disease in our region, it is our hospital?s policy to screen for HIV and viral Hepatitis for all patients aged 18 and over and those with ongoing risk factors. Hi Inquiry Pt receiving controlled substance: No Hi was queried for this patient: No Vital Signs: 07/30/24 20:03 Temperature 97.9 F Temperature Source Oral Pulse Rate [Left Radial] 98 H Respiratory Rate 16 Blood Pressure [Right Arm] 160/109 H Blood Pressure Mean [Right Arm] 126 Blood Pressure Source [Right Arm] Automatic Cuff Blood Pressure Position [Right Arm] Sitting 02 Sat by Pulse Oximetry 100 Oxygen Delivery Method Room Air Lab Data Lab Results 07/30/24 20:05: Urine Color Yellow, Urine Appearance Clear, Urine pH 6.0, Ur Specific [place] >= 1.030, Urine Protein Negative, Urine Glucose (UA) Negative, Urine Ketones Negative, Urine Blood 2+ A, Urine Nitrate Negative, Urine Bilirubin Negative, Urine Urobilinogen 0.2, Ur Leukocyte Esterase Negative, Urine RBC 5-10, Urine WBC None, Ur Squamous Epith Cells 3-5, Urine Bacteria Trace, Urine HCG, Qual Negative Orders (Tests/Meds): ORDERS Category Date Time Status Trichomonas Vaginalis, ABNER Stat Lab 07/30/24 20:05 Received UA [Urinalysis and Microscopic] Stat Lab 07/30/24 20:05 Completed Urine , HCG Qual. Stat Lab 07/30/24 20:05 Completed Medical Decision Narrative: 44-year-old female history of hypertension presenting with dysuria and hematuria. Has been going on for a couple of days at this point. Started with burning, now having red urine. No fevers, chills, nausea, vomiting. She is having intermittent left flank pains. No history of nephrolithiasis. Able to urinate without issue. No bowel symptoms. Tried taking ibuprofen, this has not helped so came for further evaluation. At the end of her menstrual period currently. History was obtained via conversation with patient. On arrival, patient hemodynamically stable, alert, oriented x4, appropriate, GCS 15, moving all extremities spontaneously, pupils equal and reactive to light. Full physical exam performed and significant for very well-appearing female no acute distress. Abdomen soft, nontender. No flank tenderness. Unremarkable physical exam overall. Differential includes cystitis, pyelonephritis, among others. Urinalysis was obtained, this demonstrated blood without any other signs of infection on independent interpretation. On further conversation, patient states that she is more worried about vaginal burning and she is urinary burning, I feel hematuria is likely due to patient currently being on her menstrual period. After shared decision making, patient agreeable to no CT scan, opting for Flagyl treatment outpatient for bacterial vaginosis, which she has had in the past. She states that she has vaginal discharge that has fishy, malodorous smell and feels pretty confident these symptoms are similar. I feel this is appropriate. Given first dose of Flagyl here. Labs are considered, but not deemed necessary given patient so well-appearing and no systemic signs or symptoms. Because patient at baseline without signs or symptoms of clinical decompensation, deemed appropriate for discharge. Results were relayed to patient who voiced understanding and were agreeable to outpatient management and follow up. I discussed my clinical impression with patient and answered all questions. At this time, the evidence for any other entities in the differential is insufficient to warrant any further testing or ED observation. This was explained as well. Advisory was given that persistent or worsening symptoms require further evaluation. I confirmed the understanding of this discussion. 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 Electronic radiation control health physicist of the spoken language may permit errors. Although I have reviewed the note, some errors may still exist. Critical Care Critical Care Time Critical Care Time: No
[2024-07-30 20:15] LABS: Microscopic, Urine URINE MICROSCOPIC (MICROSCOPIC)
[2024-07-30 20:27] LABS: Appearance,Urine CLEAR (Clear); Bilirubin,Urine Negative (Negative); Blood, Urine 2+ (Negative); Color,Urine YELLOW (Yellow); Glucose,Urine (UA) Negative (Negative); Ketones,Urine Negative (Negative); Leukocyte Esterase,Urine Negative (Negative); Nitrate,Urine Negative (Negative); Protein,Urine Negative (Negative); Specific Gravity, Urine >= 1.030 (1.005-1.030); Urobilinogen,Urine 0.2 EU/dl (0.2)
[2024-07-30 20:37] LABS: Urine Pregnancy, HCG Qual. Negative (Negative)
[2024-07-30 20:41] LABS: Bacteria,Urine Trace /lpf
[2024-07-30] MEDS: metroNIDAZOLE 500 MG TABLET PO (20:47)
[2024-07-30 20:49] VITALS: BP 147/99; PULSE 90; RESP 18; TEMP 36.6; O2SAT 98
[2024-08-03 07:54] LABS: Neisseria gonorrhoeae, NAA Negative (Negative); Trichomonas Vaginalis, NAA Negative (Negative)
== END 2024-07-30 20:51 | disposition home or self-care (01) ==
PROVIDERS: Emergency Provider Emergency Medicine; PCP Internal Medicine
DX: N39.0 Urinary tract infection, site not specified (principal); N94.89 Other specified conditions associated with female genital organs and menstrual cycle; R30.9 Painful micturition, unspecified; R10.9 Unspecified abdominal pain
CPT/HCPCS: 81001; 81025; 87491; 87591; 87661; 99283

== ENCOUNTER 2024-09-29 20:27 | Emergency (ER) | payer MEDICAID, SELFPAY ==
[2024-09-29 20:29] VITALS: BP 169/69; PULSE 108; RESP 18; TEMP 36.8; O2SAT 100; BMI 22.4
--- NOTE | 2024-09-29 21:24 | ED_ITS ---
Discharge Plan Disposition Patient Disposition: Home, Self-Care Prescriptions Prescriptions: New amoxicillin-pot clavulanate 875-125 mg tablet 1 tab PO BID 10 Days Qty: 20 0RF No Action umvmuuuusq-enlkzmzs-rrfsntlhmw 400-100-100 mg tablet 1 tab PO DAILY Rx Instructions: must administer with a meal/food bupropion HCl [Wellbutrin SR] 150 mg tablet sustained-release 12 hr 150 mg PO DAILY Qty: 30 2RF metronidazole 500 mg tablet 500 mg PO BID 7 Days Qty: 14 0RF amoxicillin 500 mg capsule 500 mg PO BID 5 Days Qty: 10 0RF metronidazole 500 mg tablet 500 mg PO BID 7 Days Qty: 14 0RF Referrals Follow up/Referrals: Carrillo Sue, [Primary Care Provider] - See instructions Activity Restrictions/Add. Instructions Additional Instructions/Restrictions: Urgent Care Clinic REGISTRATION IS NOT A GUARANTEE OF CARE Location:?[facility], [address] [place] [address] Phone Number:?[phone] The Urgent Care Clinic ([facility]) is a walk-in clinic for patients, 14 years of age and older, needing immediate care due to dental pain and swelling.?The Urgent Care Clinic is a student clinic. Patient evaluations and examinations are?carried out by dental students under the supervisions of expert [facility] dentists. Urgent Care Clinic?Registration Hours * *Clinic registration is open 7:45-10:30 am, Thursday through Thursday (closed on holidays and other dates-see below). * Patients are seen on a first come, first served basis and may experience wait times. Services are only available for a select number of patients each day.? IMPORTANT REGISTRATION NOTE:?Registeration hours are subject to close early if the clinic reaches full patient capacity for the day. Important Urgent Care Clinic Facts: * IV SEDATION & NITROUS OXIDE (laughing gas) are not available treatment options?at the [facility]?clinic. * Procedures and provided care limited to one tooth. * No removal of impacted wisdom teeth. * No comprehensive dental treatment (restorations, root canals, crowns, dentures, etc.). * If there is no sign of acute infection or pain, you will be referred to another dental clinic to establish care.? * If, upon evaluation, the scope of the patient's needs are beyond the capabilities of the dental student providers, treatment will be referred to another clinic.? Payment Details * A $129 evaluation fee, which includes an examination and X-ray, is due upon registration for non-contracted?/ self-paid patient. * An additional payment will be required at time of service depending on treatment provided and any contracted?insurance benefits for all patient categories (including?non-contracted?/ self-paid patient). * Dentistry accepts check, money order, VISA, MasterCard, [employer], and [employer]. [phone] [facility] Closure Dates *Dates are subject to change. Please check our Facebook page for closure notices.? 2023??? * September 12?2024 * September 21?3 * September??? Jaspal Aguirre Jr. Day * October 12 * October?7 * November 16? * December 02 * December 2? * December 16?17 * January 19?2 * January 27 * February 01 * February 03 * February 08 * February 10 * February 13?? * February 15 * February 17 * February 22 * February 24 For dental emergencies when other clinic options are closed, call [phone]. Clinical Impressions Clinical Impression: Pain, dental Print Language Print Language: Faroese Discharge ED Provider: León Duran General Adult HPI General Chief complaint: Dental/Oral Stated complaint: front tooth pain,fever Time Seen by Provider: 09/29/24 21:11 Mode of Arrival: Ambulatory Source of Information: Patient Limitations: No Limitations Description of Symptoms (Recalled from ER Triage Doc. by RN): Pt presents to ED for tooth pain. Pt states she's had her jaw broken twice and it shifted her front teeth. Pt states the pain comes and goes but has been constant for 2 days. History of Present Illness HPI narrative: The patient is a 44-year-old female presenting today with central incisor mandibular pain. She states she had a history of jaw fracture in the past and since that time she has had dental crowding and complains of pain today. She has not seen a dentist for this. Is concerned there may be an infection setting up. Denies any fevers or chills etc. Related Data Home Medications ?Medication ?Instructions ?Recorded ?Confirmed sofosbuvir 400 mg-velpatasvir 100 1 tab PO DAILY 02/24/24 02/24/24 mg-voxilaprevir 100 mg tablet Previous Rx's ?Medication ?Instructions ?Recorded bupropion HCl 150 mg tablet,12 hr 150 mg PO DAILY #30 ea 02/24/24 sustained-release (Wellbutrin SR) metronidazole 500 mg tablet 500 mg PO BID 7 days #14 tabs 06/13/24 amoxicillin 500 mg capsule 500 mg PO BID 5 days #10 caps 06/15/24 metronidazole 500 mg tablet 500 mg PO BID 7 days #14 tabs 07/30/24 amoxicillin 875 mg-potassium 1 tab PO BID 10 days #20 tabs 09/29/24 clavulanate 125 mg tablet Allergies Allergy/AdvReac Type Severity Reaction Status Date / Time No Known Allergies Allergy Verified 02/24/24 11:26 [facility] Disclaimer: The information contained in this section may have been updated after the patient was seen, as this information can be updated by other users. Medical History (Updated 09/29/24 @ 21:22 by León Duran MD) Hepatitis C Surgical History (Updated 02/24/24 @ 11:28 by Argelia Bone CMA) History of delivery Family History (Updated 02/24/24 @ 11:29 by Argelia Bone CMA) Other Heart attack Hypertension Social History Smoking Status: Current every day smoker tobacco type: cigarettes packs per day: 1 alcohol intake: never substance use type: marijuana, crack/cocaine, painkillers and prescription drug current occupational status: other Travel in the last 8 weeks: None Other Medical History Have you received the Flu Vaccine for this season: No Have you received the Pneumonia Vaccine: No ROS Obtained: Yes All systems reviewed & no additional complaints except as documented Physical Exam General General appearance: alert and in no apparent distress ENT ENT exam: Present other (Central incisor mandibular gingival inflammation no obvious fluctuance or significant necrosis or dental breakdown) Respiratory Respiratory exam: Present normal lung sounds bilaterally Cardiovascular Cardiovascular exam: Present regular rate Neurological Exam Neurological exam: Present alert Medical Decision Making Medical Records Screening: Per USPSTF and CDC recommendations, given the prevalence of disease in our region, it is our hospital?s policy to screen for HIV and viral Hepatitis for all patients aged 18 and over and those with ongoing risk factors. Hi Inquiry Pt receiving controlled substance: No Vital Signs: 09/29/24 20:29 Temperature 98.3 F Temperature Source Temporal Artery Scan Pulse Rate [Left] 108 H Respiratory Rate 18 Blood Pressure [Right Arm] 169/69 H Blood Pressure Mean [Right Arm] 102 02 Sat by Pulse Oximetry 100 Oxygen Delivery Method Room Air Orders (Tests/Meds): ED MEDICATIONS Generic Name Dose Route Start Last Admin Trade Name Freq PRN Reason Stop Dose Admin Amoxicillin/Clavulanate Potassium 1 each 09/29/24 21:19 Amoxicillin/Clavulanate Potassium 875/125mg Tablet PO 09/29/24 21:20 ONCE ONE Ibuprofen 400 mg 09/29/24 21:19 Ibuprofen 400 Mg Tablet PO 09/29/24 21:20 ONCE ONE Medical Decision Narrative: 44-year-old above history and physical. I do not have the ability to get a Panorex but it is possible she has a periapical abscesses with the pain and the gingival swelling surrounding this. Possibly just pulpitis but we will treat her with Augmentin. She has been given follow-up information with the walk-in clinic at dental. She was given dental balls ibuprofen first dose of Augmentin here. Patient was discharged in a stable condition. Critical Care Critical Care Time Critical Care Time: No
[2024-09-29] MEDS: IBUPROFEN 400 MG TABLET PO (21:37)
[2024-09-29] MEDS: AMOXICILLIN/CLAVULANATE POTASSIUM 875/125MG TABLET 1 EACH PO (21:37)
[2024-09-29 21:52] VITALS: BP 139/97; PULSE 84; RESP 16; TEMP 36.8; O2SAT 99
== END 2024-09-29 21:54 | disposition home or self-care (01) ==
LOC: ER 21:25
PROVIDERS: Emergency Provider Student in an Organized Health Care Education/Training Program; PCP Internal Medicine
DX: K08.89 Other specified disorders of teeth and supporting structures (principal)
CPT/HCPCS: 99283

== ENCOUNTER 2024-12-18 21:46 | Emergency (ER) | payer MEDICAID, SELFPAY ==
[2024-12-18 21:55] VITALS: BP 144/91; PULSE 117; RESP 18; TEMP 36.8; O2SAT 99; BMI 20.7
[2024-12-18 22:05] LABS: Coronavirus 19, PCR Not Detected (NotDetected); Influenza A, PCR Not Detected (NotDetected); Influenza B, PCR Not Detected (NotDetected)
--- NOTE | 2024-12-18 22:17 | CT_ITS ---
PROCEDURE INFORMATION: Exam: CT Abdomen And Pelvis With Contrast Exam date and time: 12/18/2024 11:02 PM Age: 44 years old Clinical indication: Abdominal pain; Flank; Right; Additional info: R flank pain, vaginal discharge TECHNIQUE: Imaging protocol: Computed tomography of the abdomen and pelvis with contrast. Radiation optimization: All CT scans at this facility use at least one of these dose optimization techniques: automated exposure control; mA and/or kV adjustment per patient size (includes targeted exams where dose is matched to clinical indication); or iterative reconstruction. Contrast material: ISOVUE; Contrast volume: 75 ml; Contrast route: IV; COMPARISON: CR XR CHEST PORTABLE 05/18/2020 7:30 PM FINDINGS: Lungs: No acute finding. Liver: Normal. No mass. Gallbladder and biliary ducts: Normal. No calcified stones. No ductal dilation. Pancreas: Normal. No ductal dilation. Spleen: Normal. No splenomegaly. Adrenal glands: Normal. No mass. Kidneys and ureters: There are patchy areas of peripheral ill-defined hypoenhancement within the right renal cortex consistent with multifocal pyelonephritis. The left kidney is normal. Stomach and bowel: Unremarkable. No obstruction. No mucosal thickening. Appendix: No evidence of appendicitis. Intraperitoneal space: Unremarkable. No free air. No significant fluid collection. Vasculature: Unremarkable. No abdominal aortic aneurysm. Lymph nodes: Unremarkable. No enlarged lymph nodes. Urinary bladder: Unremarkable as visualized. Reproductive: 20 mm subserosal anterior uterine body fibroid. Bones/joints: Unremarkable. No acute fracture. Soft tissues: Unremarkable. IMPRESSION: Multifocal right pyelonephritis.
[2024-12-18 22:39] LABS: Microscopic, Urine URINE MICROSCOPIC (MICROSCOPIC)
--- NOTE | 2024-12-18 22:40 | PC.NURSE ---
no cultures before abx per MD Santana
[2024-12-18] MEDS: ACETAMINOPHEN 500MG TAB 1000 MG PO (22:41)
[2024-12-18 22:42] LABS: Basophils % 0.3 % (0.1-2.0); Hematocrit 35.7 % (37.0-47.0); Hemoglobin 12.3 g/dL (12.2-16.2); Lymphocytes # 1.4 K/mm3 (0.7-4.5); Mean Corpuscular HGB Conc 34.5 g/dL (31.8-35.4); Mean Corpuscular Hemoglobin 29.4 pg (27.0-31.2); Mean Corpuscular Volume 85.2 fl (81-99); Mean Platelet Volume 9.9 fl (7.4-10.4); Monocytes # 0.8 K/mm3 (0.1-1.0); Monocytes % 10.7 % (1.7-9.3); Neutrophils # 5.3 K/mm3 (1.8-7.8); Neutrophils % 70.6 % (37.0-80.0); Platelet Count 218 K/mm3 (142-424); Red Blood Count 4.19 M/mm3 (4.20-5.40); Red Cell Distribution Width 11.9 % (11.5-17.5); White Blood Count 7.5 K/mm3 (4.8-10.8)
[2024-12-18] MEDS: KETOROLAC 30MG/ML VIAL 30 MG IV (22:42)
[2024-12-18 22:43] LABS: Bilirubin,Urine Negative (Negative); Blood, Urine 2+ (Negative); Color,Urine YELLOW (Yellow); Glucose,Urine (UA) Negative (Negative); Ketones,Urine Negative (Negative); Leukocyte Esterase,Urine 2+ (Negative); Nitrate,Urine Negative (Negative); Protein,Urine Negative (Negative); Urobilinogen,Urine 0.2 EU/dl (0.2)
[2024-12-18] MEDS: cefTRIAXone 500MG VIAL 500 MG IM (22:43)
[2024-12-18 22:44] LABS: Appearance,Urine Slightly Cloudy (Clear)
[2024-12-18] MEDS: LIDOCAINE 1% 5ML PF VIAL IM (22:45)
[2024-12-18] MEDS: DOXYCYCLINE HYCL 100 MG TABLET PO (22:46)
[2024-12-18] MEDS: LACTATED RINGERS 1000ML 1,000 ML 999 ML IV (22:46)
[2024-12-18] MEDS: metroNIDAZOLE 500 MG TABLET PO (22:48)
[2024-12-18] MEDS: ONDANSETRON 4MG/2ML VIAL 4 MG IV (22:49)
--- NOTE | 2024-12-18 22:49 | ED_ITS ---
Discharge Plan Disposition Patient Disposition: Home, Self-Care Condition: Good Chief Complaint: Abdominal Pain Prescriptions Prescriptions: New cefdinir 300 mg capsule 300 mg PO BID Qty: 20 0RF doxycycline hyclate 100 mg tablet 100 mg PO BID 7 Days Qty: 14 0RF metronidazole 500 mg tablet 500 mg PO BID 7 Days Qty: 14 0RF ondansetron 4 mg tablet,disintegrating 4 mg PO Q6H PRN (Reason: nausea and vomiting) Qty: 10 0RF No Action teykzhaujt-gnhmwdtd-fdiejumvsa 400-100-100 mg tablet 1 tab PO DAILY Rx Instructions: must administer with a meal/food bupropion HCl [Wellbutrin SR] 150 mg tablet sustained-release 12 hr 150 mg PO DAILY Qty: 30 2RF metronidazole 500 mg tablet 500 mg PO BID 7 Days Qty: 14 0RF amoxicillin 500 mg capsule 500 mg PO BID 5 Days Qty: 10 0RF metronidazole 500 mg tablet 500 mg PO BID 7 Days Qty: 14 0RF amoxicillin-pot clavulanate 875-125 mg tablet 1 tab PO BID 10 Days Qty: 20 0RF Referrals Follow up/Referrals: Jean-Paul Watts APRN [Primary Care Provider] - See instructions Activity Restrictions/Add. Instructions Additional Instructions/Restrictions: You were evaluated in the ER and are believed to be appropriate for discharge at this time. You have been prescribed multiple antibiotics. Take all of these antibiotics as directed, do not skip doses, do not stop taking them early. Take these antibiotics with a full glass of water and stay sitting upright for 30 minutes after taking them to avoid side effects. Take the prescribed ondansetron (Zofran) if needed for nausea or vomiting. Make an appointment with your primary care doctor for reevaluation in 2 to 3 days. Return to the ER with any new, worsening, or otherwise concerning symptoms. Clinical Impressions Clinical Impression: Abdominal pain, Vaginal discharge, Pyelonephritis Instructions Patient Instructions: DI for Acute Abdominal Pain Print Language Print Language: Faroese Discharge ED Provider: Beto Santana General Adult HPI <Beto Santana MD - Last Filed: 12/18/24 22:52> General Chief complaint: Abdominal Pain Stated complaint: AO 12/13/24 Injury right side Time Seen by Provider: 12/18/24 22:00 Mode of Arrival: Ambulatory Source of Information: Patient Description of Symptoms (Recalled from ER Triage Doc. by RN): Pt states 5 days ago a gate had fallen off [place] hinges [place] and she lifted the gate back up on to the hinges since then she has had right sided abdominal pain and has not felt well since. History of Present Illness HPI narrative: Patient is a 44-year-old female presents emergency department for evaluation of abdominal pain. Onset was acute, over the last week after she had a high risk sexual encounter. There is associated vaginal discharge. She also started her menstrual cycle in the last 24 hours. There is associated right lower quadrant abdominal pain right flank pain right upper quadrant abdominal pain. No vomiting. The pain is cyclical. There is associated severe dysuria. She also said that her pain was made worse when lifting a gate that came off its hinges a week ago but did not have any discrete trauma. No other acute complaints at this time. Please note that above description of symptoms, in this electronic medical record under categorization of recalled from ER triage doctor by RN are reflective of an initial nursing assessment, however, is not reflective of my full history and physical exam that was personally taken and clarified. Consequentially, this preceding description of symptoms, which may include the patient's categorized chief complaint in the EMR, do not reflect my personal clinical impression, and the ultimate description of history of present illness and patient stated complaints should be deferred to this section of the note. Unless stated otherwise or congruent with this section of the note, additional signs, symptoms, or incongruence should be interpreted as inaccurate with my clinical impression. Related Data Home Medications ?Medication ?Instructions ?Recorded ?Confirmed sofosbuvir 400 mg-velpatasvir 100 1 tab PO DAILY 02/24/24 02/24/24 mg-voxilaprevir 100 mg tablet Previous Rx's ?Medication ?Instructions ?Recorded bupropion HCl 150 mg tablet,12 hr 150 mg PO DAILY #30 ea 02/24/24 sustained-release (Wellbutrin SR) metronidazole 500 mg tablet 500 mg PO BID 7 days #14 tabs 06/13/24 amoxicillin 500 mg capsule 500 mg PO BID 5 days #10 caps 06/15/24 metronidazole 500 mg tablet 500 mg PO BID 7 days #14 tabs 07/30/24 amoxicillin 875 mg-potassium 1 tab PO BID 10 days #20 tabs 09/29/24 clavulanate 125 mg tablet cefdinir 300 mg capsule 300 mg PO BID #20 caps 12/19/24 doxycycline hyclate 100 mg tablet 100 mg PO BID 7 days #14 tabs 12/19/24 metronidazole 500 mg tablet 500 mg PO BID 7 days #14 tabs 12/19/24 ondansetron 4 mg disintegrating 4 mg PO Q6H PRN nausea and 12/19/24 tablet vomiting #10 tabs Allergies Allergy/AdvReac Type Severity Reaction Status Date / Time No Known Allergies Allergy Verified 02/24/24 11:26 PFS <Beto Santana MD - Last Filed: 12/18/24 22:52> PFS Disclaimer: The information contained in this section may have been updated after the patient was seen, as this information can be updated by other users. Medical History (Updated 12/19/24 @ 00:17 by Hoang Chawla MD) Hepatitis C Surgical History (Updated 02/24/24 @ 11:28 by Argelia Bone CMA) History of delivery Family History (Updated 02/24/24 @ 11:29 by Argelia Bone CMA) Other Heart attack Hypertension Social History Smoking Status: Former smoker tobacco type: cigarettes packs per day: 1 alcohol intake: never substance use type: marijuana, crack/cocaine, painkillers and prescription drug current occupational status: other Travel in the last 8 weeks: None Have you lived/traveled outside US in past 30 days?: No Contact w/someone who lives/traveled outside US past 30 days?: No Exposure to someone with infectious disease in past 14 days?: No Do you have a fever (greater than 100.4 F or 38 C)?: No Have you tested positive for COVID-19: No Exposed to someone with COVID-19 in past 14 days?: No Do you have a sore throat?: No Do you have a cough?: No Do you have any weakness?: No Do you have any diarrhea?: No Are you experiencing any unusual bleeding?: No Do you have any muscle aches/pain?: No Do you have any abdominal pain?: No Are you experiencing loss of taste or smell?: No Other Medical History Have you received the Flu Vaccine for this season: No Have you received the Pneumonia Vaccine: No <Beto Santana MD - Last Filed: 12/18/24 22:52> ROS Obtained: Yes Systems reviewed as appropriate & no additional complaints except as documented Physical Exam <Beto Santana MD - Last Filed: 12/18/24 22:52> General General appearance: alert and in no apparent distress Head Head exam: atraumatic and normocephalic Eye Eye exam: Present PERRL ENT ENT exam: Present mucous membranes moist Neck Neck exam: Present normal inspection Chest Chest inspection: Present normal inspection and symmetric chest wall rise Respiratory Respiratory exam: Present normal lung sounds bilaterally; Absent respiratory distress Cardiovascular Cardiovascular exam: Present regular rate and normal rhythm Abdominal Exam Abdominal exam: Present soft and tenderness (Right hemiabdominal mild tenderness); Absent guarding or rebound Extremities Exam Extremities exam: Present normal inspection Neurological Exam Neurological exam: Present alert Psychiatric Psychiatric exam: Present normal affect Skin Skin exam: Present warm and dry Medical Decision Making <Beto Santana MD - Last Filed: 12/18/24 22:52> Medical Records Screening: Per USPSTF and CDC recommendations, given the prevalence of disease in our region, it is our hospital?s policy to screen for HIV and viral Hepatitis for all patients aged 18 and over and those with ongoing risk factors. Hi Inquiry Pt receiving controlled substance: No Vital Signs: 12/18/24 21:55 12/18/24 22:54 12/18/24 23:01 Temperature 98.3 F Temperature Source Temporal Artery Scan Pulse Rate 100 H 96 H Pulse Rate [Right] 117 H Respiratory Rate 18 Blood Pressure 130/85 126/95 H Blood Pressure [Right Arm] 144/91 H Blood Pressure Mean [Right Arm] 108 Blood Pressure Source [Right Arm] Automatic Cuff Blood Pressure Position [Right Arm] Sitting 02 Sat by Pulse Oximetry 99 99 100 12/18/24 23:30 Temperature Temperature Source Pulse Rate 91 H Pulse Rate [Right] Respiratory Rate Blood Pressure 125/68 Blood Pressure [Right Arm] Blood Pressure Mean [Right Arm] Blood Pressure Source [Right Arm] Blood Pressure Position [Right Arm] 02 Sat by Pulse Oximetry 99 Lab Data Lab Results 12/18/24 21:58: SARS-CoV-2 (PCR) Not detected, Influenza A Untype (PCR) Not detected, Influenza Type B (PCR) Not detected 12/18/24 22:30: WBC 7.5, RBC 4.19 L, Hgb 12.3, Hct 35.7 L, MCV 85.2, MCH 29.4, MCHC 34.5, RDW 11.9, Plt Count 218, MPV 9.9, Neut % (Auto) 70.6, Lymph % (Auto) 18.0, Villalba % (Auto) 10.7 H, Eos % (Auto) 0.0 L, Baso % (Auto) 0.3, Neut # (Auto) 5.3, Lymph # (Auto) 1.4, Villalba # (Auto) 0.8, Eos # (Auto) 0.0, Baso # (Auto) 0.0, Sodium 135 L, Potassium 3.0 L, Chloride 100, Carbon Dioxide 27, Anion Gap 11.0, BUN 10, Creatinine 0.70, Estimated Creat Clear 81, Estimated GFR 91, Est GFR ( Amer) 110, Glucose 114 H, Calcium 9.5, Magnesium 1.8, Total Bilirubin 0.7, AST 23, ALT 16, Alkaline Phosphatase 67, Total Protein 7.2, Albumin 4.3, Globulin 2.9, Albumin/Globulin Ratio 1.5, Lipase 36, Serum HCG, Qual Negative, Urine Color Yellow, Urine Appearance Slightly cloudy, Urine pH 6.0, Ur Specific [place] Star 1.020, Urine Protein Negative, Urine Glucose (UA) Negative, Urine Ketones Negative, Urine Blood 2+ A, Urine Nitrate Negative, Urine Bilirubin Negative, Urine Urobilinogen 0.2, Ur Leukocyte Esterase 2+ A, Urine RBC 10-20, Urine WBC 10-20, Ur Squamous Epith Cells Occasional, Urine Bacteria 1+, Urine Mucus 1+ 12/18/24 22:30 12/18/24 22:30 Orders (Tests/Meds): ED MEDICATIONS Generic Name Dose Route Start Last Admin Trade Name Freq PRN Reason Stop Dose Admin Ondansetron HCl 4 mg 12/18/24 23:59 12/19/24 00:03 Ondansetron 4mg/2ml Vial IV 12/19/24 00:00 4 mg ONCE ONE Administration Sodium Chloride 10 ml 12/18/24 23:16 12/18/24 23:17 Sodium Chloride 0.9% 10ml Syr (Rad Only) IV 01/17/25 23:15 10 ml NEEDED PRN Administration Maintain IV Site Discontinued Medications Generic Name Dose Route Start Last Admin Trade Name Freq PRN Reason Stop Dose Admin Acetaminophen 1,000 mg 12/18/24 22:17 12/18/24 22:41 Acetaminophen 500mg Tab PO 12/18/24 22:18 1,000 mg ONCE ONE Administration Ceftriaxone Sodium 500 mg 12/18/24 22:18 12/18/24 22:43 Ceftriaxone 500mg Vial IM 12/18/24 22:19 500 mg ONCE ONE Administration Doxycycline Hyclate 100 mg 12/18/24 22:19 12/18/24 22:46 Doxycycline Hycl 100 Mg Tablet PO 12/18/24 22:20 100 mg ONCE ONE Administration Fluconazole 200 mg 12/18/24 23:53 Fluconazole 200mg Tablet PO 12/18/24 23:54 ONCE ONE Lactated Ringer's 1,000 mls @ 999 mls/hr 12/18/24 22:18 12/18/24 22:46 Lactated Ringer's 1000 Ml Bag IV 12/18/24 23:18 999 mls/hr .Q1H1M ONE Administration Iopamidol 75 ml 12/18/24 23:16 12/18/24 23:16 Iopamidol-370 (76%);100ml Bottle IV 12/18/24 23:17 75 ml ONCE ONE Administration Ketorolac Tromethamine 30 mg 12/18/24 22:17 12/18/24 22:42 Ketorolac 30mg/Ml Vial IV 12/18/24 22:18 30 mg ONCE ONE Administration Lidocaine HCl 0 ml 12/18/24 22:18 12/18/24 22:45 Lidocaine 1% 5ml Pf Vial IM 12/18/24 22:19 5 ml ONCE ONE Administration Metronidazole 500 mg 12/18/24 22:21 12/18/24 22:48 Metronidazole 500 Mg Tablet PO 12/18/24 22:22 500 mg ONCE ONE Administration Ondansetron HCl 4 mg 12/18/24 22:21 12/18/24 22:49 Ondansetron 4mg/2ml Vial IV 12/18/24 22:22 4 mg ONCE ONE Administration Potassium Chloride 40 meq 12/18/24 22:56 12/18/24 22:59 Potassium Chloride 20meq Tab PO 12/18/24 22:57 40 meq ONCE ONE Administration ORDERS Category Date Time Status CT abdomen pelvis w con Stat Cat Scan 12/18/24 22:17 Completed CBC w/Auto Diff [Complete Blood Count Auto Diff] Stat Lab 12/18/24 22:30 Completed CMP [Comprehensive Metabolic Panel] Stat Lab 12/18/24 22:30 Completed HCG Qualitative, Serum Stat Lab 12/18/24 22:30 Completed Lipase Stat Lab 12/18/24 22:30 Completed Magnesium Stat Lab 12/18/24 22:30 Completed Rapid PCR Covid and Flu A/B Stat Lab 12/18/24 21:58 Completed UA [Urinalysis and Microscopic] Stat Lab 12/18/24 22:30 Completed Urine Culture Stat Micro 12/18/24 22:30 Received Medical Decision Narrative: In summary patient is a 44-year-old female with past medical history described above presents emergency department for evaluation abdominal pain and vaginal discharge. Patient is hemodynamically stable nontoxic-appearing upon arrival, afebrile. Differential diagnosis includes Sebastian-Khoa Saturnino syndrome, urinary tract infection, urethritis, STI, appendicitis, gallbladder pathology, among others. Workup will be conducted with hematologic labs, urinalysis, CT abdomen pelvis IV contrast. Initial inventions include multimodal pain control, crystalloid bolus, STI postexposure prophylaxis with intramuscular ceftriaxone, doxycycline, metronidazole. Utility of speculum exam was discussed with patient and she is confident she has no external lesions therefore shared decision making discussion was had and is unlikely to change workup will defer at this time. Initial hematologic labs reviewed by me, no leukocytosis or anemia, remainder of hematologic labs are pending, urinalysis/2+ leuk esterase microscopy pending. CT abdomen pelvis and repeat evaluation pending at time of transition of care to the oncoming physician, Dr. Chawla. <Hoang Chawla MD - Last Filed: 12/19/24 00:19> Vital Signs: 12/18/24 21:55 12/18/24 22:54 12/18/24 23:01 Temperature 98.3 F Temperature Source Temporal Artery Scan Pulse Rate 100 H 96 H Pulse Rate [Right] 117 H Respiratory Rate 18 Blood Pressure 130/85 126/95 H Blood Pressure [Right Arm] 144/91 H Blood Pressure Mean [Right Arm] 108 Blood Pressure Source [Right Arm] Automatic Cuff Blood Pressure Position [Right Arm] Sitting 02 Sat by Pulse Oximetry 99 99 100 12/18/24 23:30 Temperature Temperature Source Pulse Rate 91 H Pulse Rate [Right] Respiratory Rate Blood Pressure 125/68 Blood Pressure [Right Arm] Blood Pressure Mean [Right Arm] Blood Pressure Source [Right Arm] Blood Pressure Position [Right Arm] 02 Sat by Pulse Oximetry 99 Lab Data Lab Results 12/18/24 21:58: SARS-CoV-2 (PCR) Not detected, Influenza A Untype (PCR) Not detected, Influenza Type B (PCR) Not detected 12/18/24 22:30: WBC 7.5, RBC 4.19 L, Hgb 12.3, Hct 35.7 L, MCV 85.2, MCH 29.4, MCHC 34.5, RDW 11.9, Plt Count 218, MPV 9.9, Neut % (Auto) 70.6, Lymph % (Auto) 18.0, Villalba % (Auto) 10.7 H, Eos % (Auto) 0.0 L, Baso % (Auto) 0.3, Neut # (Auto) 5.3, Lymph # (Auto) 1.4, Villalba # (Auto) 0.8, Eos # (Auto) 0.0, Baso # (Auto) 0.0, Sodium 135 L, Potassium 3.0 L, Chloride 100, Carbon Dioxide 27, Anion Gap 11.0, BUN 10, Creatinine 0.70, Estimated Creat Clear 81, Estimated GFR 91, Est GFR ( Amer) 110, Glucose 114 H, Calcium 9.5, Magnesium 1.8, Total Bilirubin 0.7, AST 23, ALT 16, Alkaline Phosphatase 67, Total Protein 7.2, Albumin 4.3, Globulin 2.9, Albumin/Globulin Ratio 1.5, Lipase 36, Serum HCG, Qual Negative, Urine Color Yellow, Urine Appearance Slightly cloudy, Urine pH 6.0, Ur Specific [place] 1.020, Urine Protein Negative, Urine Glucose (UA) Negative, Urine Ketones Negative, Urine Blood 2+ A, Urine Nitrate Negative, Urine Bilirubin Negative, Urine Urobilinogen 0.2, Ur Leukocyte Esterase 2+ A, Urine RBC 10-20, Urine WBC 10-20, Ur Squamous Epith Cells Occasional, Urine Bacteria 1+, Urine Mucus 1+ Orders (Tests/Meds): ED MEDICATIONS Generic Name Dose Route Start Last Admin Trade Name Freq PRN Reason Stop Dose Admin Ondansetron HCl 4 mg 12/18/24 23:59 12/19/24 00:03 Ondansetron 4mg/2ml Vial IV 12/19/24 00:00 4 mg ONCE ONE Administration Sodium Chloride 10 ml 03/30/25 23:16 12/18/24 23:17 Sodium Chloride 0.9% 10ml Syr (Rad Only) IV 01/17/25 23:15 10 ml NEEDED PRN Administration Maintain IV Site Discontinued Medications Generic Name Dose Route Start Last Admin Trade Name Fredyq PRN Reason Stop Dose Admin Acetaminophen 1,000 mg 12/18/24 22:17 12/18/24 22:41 Acetaminophen 500mg Tab PO 12/18/24 22:18 1,000 mg ONCE ONE Administration Ceftriaxone Sodium 500 mg 12/18/24 22:18 12/18/24 22:43 Ceftriaxone 500mg Vial IM 12/18/24 22:19 500 mg ONCE ONE Administration Doxycycline Hyclate 100 mg 12/18/24 22:19 12/18/24 22:46 Doxycycline Hycl 100 Mg Tablet PO 12/18/24 22:20 100 mg ONCE ONE Administration Fluconazole 200 mg 12/18/24 23:53 Fluconazole 200mg Tablet PO 12/18/24 23:54 ONCE ONE Lactated Ringer's 1,000 mls @ 999 mls/hr 12/18/24 22:18 12/18/24 22:46 Lactated Ringer's 1000 Ml Bag IV 12/18/24 23:18 999 mls/hr .Q1H1M ONE Administration Iopamidol 75 ml 12/18/24 23:16 12/18/24 23:16 Iopamidol-370 (76%);100ml Bottle IV 12/18/24 23:17 75 ml ONCE ONE Administration Ketorolac Tromethamine 30 mg 12/18/24 22:17 12/18/24 22:42 Ketorolac 30mg/Ml Vial IV 12/18/24 22:18 30 mg ONCE ONE Administration Lidocaine HCl 0 ml 12/18/24 22:18 12/18/24 22:45 Lidocaine 1% 5ml Pf Vial IM 12/18/24 22:19 5 ml ONCE ONE Administration Metronidazole 500 mg 12/18/24 22:21 12/18/24 22:48 Metronidazole 500 Mg Tablet PO 12/18/24 22:22 500 mg ONCE ONE Administration Ondansetron HCl 4 mg 12/18/24 22:21 12/18/24 22:49 Ondansetron 4mg/2ml Vial IV 12/18/24 22:22 4 mg ONCE ONE Administration Potassium Chloride 40 meq 12/18/24 22:56 12/18/24 22:59 Potassium Chloride 20meq Tab PO 12/18/24 22:57 40 meq ONCE ONE Administration ORDERS Category Date Time Status CT abdomen pelvis w con Stat Cat Scan 12/18/24 22:17 Completed CBC w/Auto Diff [Complete Blood Count Auto Diff] Stat Lab 12/18/24 22:30 Completed CMP [Comprehensive Metabolic Panel] Stat Lab 12/18/24 22:30 Completed HCG Qualitative, Serum Stat Lab 12/18/24 22:30 Completed Lipase Stat Lab 12/18/24 22:30 Completed Magnesium Stat Lab 12/18/24 22:30 Completed Rapid PCR Covid and Flu A/B Stat Lab 12/18/24 21:58 Completed UA [Urinalysis and Microscopic] Stat Lab 12/18/24 22:30 Completed Urine Culture Stat Micro 12/18/24 22:30 Received Medical Decision Narrative: In summary patient is a 44-year-old female with past medical history described above presents emergency department for evaluation abdominal pain and vaginal discharge. Patient is hemodynamically stable nontoxic-appearing upon arrival, afebrile. Differential diagnosis includes Sebastian-Khoa Saturnino syndrome, urinary tract infection, urethritis, STI, appendicitis, gallbladder pathology, among others. Workup will be conducted with hematologic labs, urinalysis, CT abdomen pelvis IV contrast. Initial inventions include multimodal pain control, crystalloid bolus, STI postexposure prophylaxis with intramuscular ceftriaxone, doxycycline, metronidazole. Utility of speculum exam was discussed with patient and she is confident she has no external lesions therefore shared decision making discussion was had and is unlikely to change workup will defer at this time. Initial hematologic labs reviewed by me, no leukocytosis or anemia, remainder of hematologic labs are pending, urinalysis/2+ leuk esterase microscopy pending. CT abdomen pelvis and repeat evaluation pending at time of transition of care to the oncoming physician, Dr. Chawla. Chawla: Upon my assumption of care patient is stable, resting comfortably. I agree with the assessment and plan from Dr. Santana. I reviewed labs send patient does have evidence of possible UTI. CT abdomen pelvis personally interpreted does not demonstrate obvious acute intra-abdominal pathology however radiology read comments on multifocal pyelonephritis of the right kidney which is consistent with the patient's clinical presentation. There is no evidence of emphysematous pyelonephritis and patient's labs and vitals are reassuring against systemic infection at this time. She received cefdinir for treatment of UTI/pyelo-. Additionally, she does have a history of vaginal candidiasis and received single dose of Diflucan. Patient has been prescribed metronidazole, doxycycline, cefdinir, and ondansetron for outpatient treatment of possible STI, pyelonephritis, and nausea. Patient was given instructions on symptomatic management, follow up instructions, and return precautions for the emergency department. Patient indicated understanding and was discharged in stable condition. Critical Care <Beto Santana MD - Last Filed: 12/18/24 22:52> Critical Care Time Critical Care Time: No
[2024-12-18 22:51] LABS: Albumin Level 4.3 g/dl (3.5-5.0); Chloride 100 mmol/L (98-107); Sodium 135 mmol/L (136-145)
[2024-12-18 22:52] LABS: HCG Qualitative, Serum Negative (Negative)
[2024-12-18 22:54] VITALS: BP 130/85; PULSE 100; O2SAT 99
[2024-12-18 22:54] LABS: Alanine Aminotransferase 16 U/L (12-78); Albumin/Globulin Ratio 1.5 (1.1-1.8); Alkaline Phosphatase 67 U/L (38-126); Aspartate Amino Transferase 23 U/L (14-36); Bilirubin,Total 0.7 mg/dl (0.2-1.3); Blood Urea Nitrogen 10 mg/dl (7-17); Calcium 9.5 mg/dl (8.4-10.2); Carbon Dioxide 27 mmol/L (22.0-30.0); Creatinine Clearance Estimated 81 mL/min (50-200); Estimated Glomerular Filt Rate 91 ml/min (>60); GFR (African American) 110 ML/MIN (>60); Globulin 2.9 g/dL (1.3-3.2); Glucose 114 mg/dl (74-100); Lipase 36 U/L (23-300); Total Protein,Serum 7.2 g/dl (6.3-8.2)
[2024-12-18] MEDS: POTASSIUM CHLORIDE 20MEQ TAB 40 MEQ PO (22:59)
[2024-12-18 23:01] VITALS: BP 126/95; PULSE 96; O2SAT 100
[2024-12-18 23:03] LABS: Bacteria,Urine 1+ /lpf; Mucus,Urine 1+ /lpf; Squamous Epithelial Cell,Urine Occasional #/hpf (0-5)
[2024-12-18 23:06] LABS: Magnesium 1.8 mg/dl (1.6-2.3)
[2024-12-18] MEDS: IOPAMIDOL-370 (76%);100ML BOTTLE 75 ML IV (23:16)
[2024-12-18] MEDS: SODIUM CHLORIDE 0.9% 10ML SYR (RAD ONLY) 10 ML IV (23:17)
--- NOTE | 2024-12-18 23:19 | PC.NURSE ---
pt returned from radiology without incident
[2024-12-18 23:30] VITALS: BP 125/68; PULSE 91; O2SAT 99
[2024-12-19] MEDS: ONDANSETRON 4MG/2ML VIAL 4 MG IV (00:03)
[2024-12-19] MEDS: FLUCONAZOLE 200MG TABLET 200 MG PO (00:04)
[2024-12-19 00:18] VITALS: BP 109/73; PULSE 86; RESP 14; TEMP 36.6; O2SAT 100
[2024-12-20 21:29] LABS: Neisseria gonorrhoeae, NAA Negative (Negative)
--- NOTE | 2024-12-21 09:56 | PC.NURSE ---
I spoke with about pts E.coli positive urine results. He states the antibiotics called in are an acceptable treatment. no changes needed.
== END 2024-12-19 00:25 | disposition home or self-care (01) ==
PROVIDERS: Emergency Provider Emergency Medicine; PCP Nurse Practitioner Family
DX: N12 Tubulo-interstitial nephritis, not specified as acute or chronic (principal); R10.31 Right lower quadrant pain; R30.0 Dysuria; N89.8 Other specified noninflammatory disorders of vagina; F17.210 Nicotine dependence, cigarettes, uncomplicated; F32.A Depression, unspecified; F41.9 Anxiety disorder, unspecified; Z71.6 Tobacco abuse counseling
CPT/HCPCS: 74177; 80053; 81001; 83690; 83735; 84703; 85025; 87086; 87088; 87186; 87491; 87591; 87636; 96361; 96372; 96374; 96375; 96376; 99285; J0696; J1885; J2405; J7120; Q9967

== ENCOUNTER 2025-09-12 05:51 | Emergency (ER) | payer OTHER, SELFPAY ==
--- OUTSIDE RECORDS SUMMARY | 2025-09-12 05:56 | XMS_ITS | Patient Health Record ---
Author Organization [facility] Address [address] [place] [address] Care Team Providers Care Steel Pickler Name Role Phone Prudence Osorio Primary Care Provider Allergies No Known Allergies Reason For Referral No Information Medications Medication SIG (Take, Route, Fr equency, Duration) Notes Start Date End Date Status Epclusa 400-100 MG 1 tablet Orally Once a day; Duration: 84 day(s) 02/27/2022 Active cloNIDine Active Ondansetron 8 MG 1 tablet on the tong ue and allow to dissolve as needed Orally Q8H Active Lisinopril 10 MG 1 tablet Orally Once a day Active Problems Problem Type SNOMED Code ICD Code Onset Dates Problem Status W/U Status Risk Notes Problem Chronic hepatitis C (678289416) Chronic viral hepatitis C (B18.2) Active confirmed Problem Substance use disorder (2282947576) Substance use disorder (F19.90) Active confirmed Plan Of Treatment Pending Test Test Name Order Date Iron and TIBC 12/19/2021 AFP, Serum, Tumor Marker 12/19/2021 Ferritin, Serum 12/19/2021 Prothrombin Time (PT) 12/19/2021 Hep B Surface Ab 12/19/2021 Hep B Core Ab, Tot 12/19/2021 Hep A Ab, Total 12/19/2021 Ammonia, Plasma 12/19/2021 HCV FibroSure 12/19/2021 HCV Genotyping Non Reflex 12/19/2021 Insurance Providers Payer Name Payer Address Payer Phone Subscriber Number Group Number Insured Name Patient Relationship to Insured Coverage Start Date Coverage End Date [employer] [address] SUREKHA Velázquez [id number] [phone] [id number] Eneida Rush Self - patient is the insured Medical (General) History Medical History History ICD Code hepatitis C bipolar disorder PTSD Surgical History Surgery Date(Month/Year) section tubal ligation Hospitalization History Reason Date(Month/Year) childbirth
--- OUTSIDE RECORDS SUMMARY | 2025-09-12 05:56 | XMS_ITS | Clinical Summary ---
Author Organization [employer] ([place], [place], [place], [place], [place]) Address [address] [place] [address] Care Team Providers Care Consulting Database Administrator Name Role Phone Unavailable Primary Care Provider Unavailabl e Social History Tobacco Use Types Packs/Day Years Used Date Smoking Tobacco: Never Assessed Comments Unknown Sex and Gender Information Value Date Recorded Sex Assigned at Female 03/18/2022 6:17 PM CDT Legal Sex Female 6:17 PM CDT Gender Identity Female 03/18/2022 6:17 PM CDT Sexual Orientation Not on file Plan of Treatment Not on file
--- OUTSIDE RECORDS SUMMARY | 2025-09-12 05:56 | XMS_ITS | Clinical Summary ---
Author Organization [facility] Address [address] [place] [address] Care Team Providers Care Waistline Joiner Lockstitch Name Role Phone Clarisse Lama APRN Primary Care Provider [phone] Allergies No known active allergies Medications lisinopril 10 MG tablet Take 1 tablet (10 mg) by mouth 1 (one) time each day. 30 tablet 2 01/25/2024 Active Active Problems No known active problems Family History Medical History Relation Name Comments Heart disease Father Diabetes Mother Heart attack Paternal Grandmother Relation Name Status Comments Father Mother Paternal Grandmother Social History Tobacco Use Types Packs/Day Years Used Date Smoking Tobacco: Every Day Smokeless Tobacco: Never Alcohol Use Standard Drinks/Week Comments Not Currently 0 (1 standard drink = 0.6 oz pur e alcohol) Comments Unknown Sex and Gender Information Value Date Recorded Sex Assigned at Not on file Legal Sex Female 7:59 PM EDT Gender Identity Not on file Sexual Orientation Not on file Last Filed Vital Signs Vital Sign Reading Time Taken Comments Blood Pressure 167/98 01/25/2024 1:21 PM EDT Pulse 82 01/25/2024 1:21 PM EDT Temperature 36.5 C (97.7 F) 10/24/2021 3:38 PM EST Respiratory Rate 18 10/24/2021 7:12 PM EST Oxygen Saturation 99% 10/24/2021 7:12 PM EST Inhaled Oxygen Concentration - - Weight 51.8 kg (114 lb 3.2 oz) 01/25/2024 1:21 P M EDT Height 157.5 cm (5' 2 ) 01/25/2024 1:21 PM EDT Body Mass Index 20.89 01/25/2024 1:21 PM EDT Plan of Treatment Health Maintenance Due Date Last Done Comments [facility]-Depression Screening 1980 [facility]-Infant/Child/Adol SDOH Screenings 1980 [facility]-Varicella Vaccines (1 of 2 - 13+ 2-dose series) 02/10/1993 [facility]- SDOH Screenings 02/10/1998 [facility]-Adult SDOH Screenings 02/10/1998 [facility]-DTaP,Tdap,and Td Vaccine s (1 - Tdap) 02/10/1999 [facility]-Hepatitis B Vaccines (1 of 3 - 19+ 3-dose series) 02/10/1999 [facility]-Pap Smear 02/10/2001 [facility]-Cervical Cancer Screening 02/10/2010 [facility]-HPV/Cotest 02/10/2010 CT Colonography 02/10/2025 Colonoscopy 02/10/2025 FIT-DNA 02/10/2025 FIT 02/10/2025 FOBT 02/10/2025 Sigmoidoscopy 02/10/2025 [facility]-Colorectal Cancer Screening 02/10/2025 [id number] Vaccine (2 - season) 2025 01/21/2021 [facility]-Influenza Vaccine (#1) 05/22/202509/09, 05/30/2017 [facility]-Zoster Vaccines (1 of 2) 02/10/2030 [facility]-Hepatitis A Vaccines Aged Out 09/08/2018 No longer eligible based on patient's age to complete this topic [facility]-HIV Screening Completed 01/25/2024, 06/27/2021 HPV Vaccines (No Doses Required) Completed [facility]-HIB Vaccines Aged Out No longer e ligible based on patient's age to complete this topic [facility]-IPV Vaccines Aged Out No longer e ligible based on patient's age to complete this topic [facility]-Pneumococcal Vaccine: Pediatrics (0 to 5 Years) and At-Risk Patients (6 to 49 Years) Aged Out No longer eligible b ased on patient's age to complete this topic [facility]-Rotavirus Vaccines Aged Out No lo nger eligible based on patient's age to complete this topic Procedures Procedure Name Priority Date/Time Associated Diagnosis Comments HIV 1/2 ANTIBODY/ANTIGEN SCREEN WITH REFLEX TO HIV I/II DIFFERENTIATION Routine 01/25/2024 2:38 PM EDT Chronic hepatitis C without hepatic coma (CMS/HCC) from Last 3 Months or Most Recently Relevant to Health Maintenance Results * HIV 1 & 2 Antibody/Antigen Screen (01/25/2024 2:38 PM EDT) HIV 1 & 2 Antibody/Antigen Screen Non Reactive Non Reactive 01/25/2024 4:37 PM EDT [facility] Comment:Screening for HIV 1 & 2 antibodies, and P24 antigen is NONREACTIVE. No confirmatory testing is required. Blood Venous blood specimen / Unknown Venipuncture / Unknown 01/25/2024 2:38 PM EDT 01/25/2024 2:39 PM EDT us Jigar Espinal APRN, DNP LAB BLOOD ORDERABLES [facility] in[facility] [address] [place] [address] from Last 3 Months or Most Recently Relevant to Health Maintenance Insurance Care Teams Waistline Joiner Lockstitch Relationship Specialty Start Date End Date Clarisse Lama APRN [address] [place] [address] PCP - General 02/01/21
--- OUTSIDE RECORDS SUMMARY | 2025-09-12 05:56 | XMS_ITS | Encounter Summary ---
Author Organization [employer] ([place], [place], [place], [place], [place]) Address [address] [place] [address] Care Team Providers Care Dice Table Operator Name Role Phone Unavailable Primary Care Provider Unavailabl e Encounter Details Date Type Department Care Team (Late st Contact Info) Description 06/11/2019 Transcribed Document [facility] [place] Family [place] [facility] [place] [address] ProviderMohan MD [facility] [place] [address] Social History Tobacco Use Types Packs/Day Years Used Date Smoking Tobacco: Never Assessed Comments Unknown Sex and Gender Information Value Date Recorded Sex Assigned at Female 03/18/2022 6:17 PM CDT Legal Sex Female 6:17 PM CDT Gender Identity Female 03/18/2022 6:17 PM CDT Sexual Orientation Not on file documented as of this encounter Miscellaneous Notes * Cerner Conversion Note - Mohan ProviderMD - 06/11/2019 2:56 AM CDT ED Discharge Entered On: 06/11/2019 2:57 EDT Performed On: 06/11/2019 2:56 EDT by NICK FERNANDEZ RN Discharge Process Patient Disposition : Discharge Patient Education Completed : Yes Teaching Evaluation : Verbalizes understanding IV Discontinued : Not applicable Nursing Documentation Completed : Yes NICK FERNANDEZ RN - 06/11/2019 2:56 EDT ED Discharge Discharge To : Home with ambulatory/outpatient follow-up Mode Of Departure : Ambulatory Accompanied By : Spouse Discharge Instructions Reviewed With, Opportunity For Questions Given : Patient Prescriptions Given to Patient : Yes Number of Prescriptions Given : 1 NICK FERNANDEZ RN - 06/11/2019 2:56 EDT documented in this encounter Plan of Treatment Not on file documented as of this encounter Visit Diagnoses Not on filedocumented in this encounter
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
--- OUTSIDE RECORDS SUMMARY | 2025-09-12 05:56 | XMS_ITS | Encounter Summary ---
Author Organization [employer] ([place], [place], [place], [place], [place]) Address [address] [place] [address] Care Team Providers Care Handkerchief Sample Clerk Name Role Phone Unavailable Primary Care Provider Unavailabl e Encounter Details Date Type Department Care Team (Late st Contact Info) Description 03/28/2020 Transcribed Document [place] Family Medicine [facility] [place] [address] ProviderMohan MD [address] [place] [place], [place] [address] Social History Tobacco Use Types Packs/Day Years Used Date Smoking Tobacco: Never Assessed Comments Unknown Sex and Gender Information Value Date Recorded Sex Assigned at Female 03/18/2022 6:17 PM CDT Legal Sex Female 6:17 PM CDT Gender Identity Female 03/18/2022 6:17 PM CDT Sexual Orientation Not on file documented as of this encounter Miscellaneous Notes * Cerner Conversion Note - Historical ProviderMD - 03/28/2020 8:07 PM CDT documented in this encounter Plan of Treatment Not on file documented as of this encounter Visit Diagnoses Not on filedocumented in this encounter
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
--- OUTSIDE RECORDS SUMMARY | 2025-09-12 05:56 | XMS_ITS | Encounter Summary ---
Author Organization [employer] ([place], [place], [place], [place], [place]) Address [address] [place] [address] Care Team Providers Care Aircraft Powertrain Repairer Name Role Phone Unavailable Primary Care Provider Unavailabl e Encounter Details Date Type Department Care Team (Late st Contact Info) Description 03/28/2020 Transcribed Document [facility] [place] [facility] [place] [address] ProviderMohan MD [place] [address] Social History Tobacco Use Types [...] Conversion Note - Historical ProviderMD - 03/28/2020 9:06 PM CDT ED Discharge Entered On: 03/28/2020 21:07 EDT Performed On: 03/28/2020 21:06 EDT by Cait Vivar RN Discharge Process Patient Disposition : AMA/Elope/LWBS Personal Belongings With Patient : Yes Patient Education Completed : Yes Teaching Evaluation : Verbalizes understanding IV Discontinued : Not applicable Nursing Documentation Completed : Yes Cait Vivar RN - 03/28/2020 21:06 EDT LWBS/Elopement/AMA Patient Elopement : Yes Attempts to Locate Patient : 2 Provider Notified : Yes Cait Vivar RN - 03/28/2020 21:06 EDT documented in this encounter Plan of Treatment Not on file documented as of this encounter Visit Diagnoses Not on filedocumented in this encounter
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
--- OUTSIDE RECORDS SUMMARY | 2025-09-12 05:56 | XMS_ITS | Encounter Summary ---
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 Name Role Phone Unavailable Primary Care Provider Unavailabl e Encounter Details Date Type Department Care Team (Late st Contact Info) Description 06/11/2019 Transcribed Document [facility] Family Medicine [facility] [place] [address] ProviderMohan MD [address] [place] [address] Social History Tobacco Use Types [...] Conversion Note - Mohan ProviderMD - 06/11/2019 2:03 AM CDT ED Triage Entered On: 06/11/2019 2:13 EDT Performed On: 06/11/2019 2:08 EDT by NICK FERNANDEZ RN ED Triage Across the Room Triage Date/Time : 06/11/2019 2:08 EDT Chief Complaint : pt reports increased anxiety c hyperventilation that started today r/t family issues. pt states she use to take valuim and [facility] denies any other s/s. has dr nuñez for psychiatrist on . h/o ptsd, bipolar, anxiety, adhd. NICK FERNANDEZ RN - 06/11/2019 2:08 EDT DCP GENERIC CODE Tracking Acuity : 4 - Non - Urgent Tracking Group : [facility] NICK FERNANDEZ RN - 06/11/2019 2:08 EDT Mode of Arrival : Ambulatory Transported to ED by : Walk in To Room Via : Ambulate Accompanied By : Spouse ED Vital Signs : Document Height & Weight : Document ED Reason for Visit : Document Last Menstrual Period : 06/08/2019 EDT Tetanus Immunization : Less than 5 years Tried to Harm Yourself in the Past? : No Thoughts of Harming/Killing Yourself : No Recent Thoughts of Harming/Killing Others : No NICK FERNANDEZ RN - 06/11/2019 2:08 EDT Infectious Disease History Infectious Disease History : None Fever/Chills Last 48 Hours : No Travel To Regions with Travel Advisories : No Travel Outside [place] Within Last 30 Days : No Contact With Traveler to Advisory Region : No Tuberculosis Symptoms : None NICK FERNANDEZ RN - 06/11/2019 2:08 EDT Vital Signs ED Temperature Source : Oral Temperature Mode : Fahrenheit Temperature, Fahrenheit : 97.8 Deg F ED Pain : No Clinical Temperature, C : 36.6 Deg C Oxygen Therapy Mode : Room air Peripheral Pulse Rate : 107 bpm (HI) Systolic Blood Pressure : 179 mmHg (HI) Diastolic Blood Pressure : 108 mmHg (HI) Oxygen Saturation : 100 % NICK FERNANDEZ RN - 06/11/2019 2:08 EDT Diagnosis Control ED (As Of: 06/11/2019 02:13:46 EDT) Diagnoses(Active) Anxious Date: 06/11/2019 ; Diagnosis Type: Reason For Visit ; Confirmation: Complaint of ; Clinical Dx: Anxious ; Classification: Medical ; Clinical Service: Non-Specified ; Code: PNED ; Probability: 0 ; Diagnosis Code: [id number] ED Height and Weight Height Source : Stated Height Entry Format : Webb Height, Feet : 5 ft(Converted to: 152 cm, 60 Inch) Height, Inches : 0 Inch(Converted to: 0 ft 0 Inch, 0.00 cm) Clinical Height : 152.4 cm Weight Source, ED : Critical estimated dosing weight Weight Entry Format : Webb Weight, Pounds : 110 lb Clinical Dosing Weight : 50 kg Body Surface Area (BSA) : 1.45 m2 Body Mass Index : 21.5 kg/m2 [place] Body Weight (IBW) : 45.16 kg NICK FERNANDEZ RN - 06/11/2019 2:08 EDT documented in this encounter Plan of Treatment Not on file documented as of this encounter Visit Diagnoses Not on filedocumented in this encounter
--- OUTSIDE RECORDS SUMMARY | 2025-09-12 05:57 | XMS_ITS | Encounter Summary ---
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 Name Role Phone Unavailable Primary Care Provider Unavailabl e Encounter Details Date Type Department Care Team (Late st Contact Info) Description 06/11/2019 Transcribed Document [facility] Family Medicine [facility] [address] ProviderMohan MD [address] [place], [place] [address] Social History Tobacco Use Types Packs/Day Years Used Date Smoking Tobacco: Never Assessed Comments Unknown Sex and Gender Information Value Date Recorded Sex Assigned at Female 03/18/2022 6:17 PM CDT Legal Sex Female 6:17 PM CDT Gender Identity Female 03/18/2022 6:17 PM CDT Sexual Orientation Not on file documented as of this encounter Miscellaneous Notes * Cerner Conversion Note - Historical ProviderMD - 06/11/2019 2:44 AM CDT Electronically signed by Br[facility] Conversion Supervisor Doping Mynor at 01/09/2023 10:41 AM CDT documented in this encounter Plan of Treatment Not on file documented as of this encounter Visit Diagnoses Not on filedocumented in this encounter
--- OUTSIDE RECORDS SUMMARY | 2025-09-12 05:57 | XMS_ITS | Encounter Summary ---
Author Organization [employer] ([place], [place], [place], [place], [place]) Address [address] [place] [address] Care Team Providers Care Manager Urology Name Role Phone Unavailable Primary Care Provider Unavailabl e Encounter Details Date Type Department Care Team (Late st Contact Info) Description 02/19/2019 Transcribed Document [facility] Family Medicine [facility] [place] [address] ProviderMohan MD [facility] [place] [address] Social History Tobacco Use Types [...] Cerner Conversion Note - Mohan ProviderMD - 02/19/2019 11:33 PM CDT [place] [id number] JOSSIE ACEVEDO :1980 Visit Time:02/19/2019 Your Visit Summary Your Care Team Admitting Physician - ANIKA ZHANG MD-SHUKRI Attending Physician - ANIKA ZHANG MD-SHUKRI Primary Care Physician - STEFANY QUEEN (REF), -BRUNO Referring Physician - DENISE, SELF REFERRED Your Diagnosis Closed fracture of mandible Facial pain Patient Portal Reminder: Be sure to sign up for the [facility] patient portal, which gives you 24/ access to your medical information ??? including these discharge instructions ??? using your computer, smartphone, or tablet. Just go to [employer] to get started. Questions? Call . You may also obtain a copy of your Emergency Department visit from Medical Records by calling the hospital phone number listed above and asking to be directed to the Medical Records Department. If you had special tests, such as EKG???s or X-rays, the interpretation of your tests given to you by the Emergency Department Physician is a preliminary report. Some fractures and illnesses fail to show up on preliminary tests. These will be reviewed again and we will call you if there are any new suggestions. If your symptoms continue notify your physician. After you leave, you should follow the instructions provided. What to do next Follow-Up Appointments Follow Up with KELIN WEEKS When Within 2 to 3 days Where: [address] [facility] [address] [address]- Business (1) Follow Up with Return to Emergency Department When Within As needed Comments Return if condition worsens. Use Peridex to keep mouth and teeth clean. Take antibiotics as prescribed. Followup on ThursdayFebruary with Dr. Weeks in the office---you can call first thing in the morning to ask about what time to be there. TAKE YOUR CD WITH YOU---THIS HAS YOUR CAT SCAN PICTURES ANDTHEY WILL NEED TO SEE THIS. Soft, no-chew diet. Pain medicine as needed. Return to ER if worse. Follow Up with STEFANY QUEEN When Within 2 to 3 days Where: [address] [place] [address]- Business (1) Allergies No Known Allergies Immunizations This Visit No Immunizations Found Medications What How Much When Instructions Next Dose acetaminophen-hydrocodone ([place] 5 mg-325 mg oral tablet) 1-2 tabs Oral Every 6 Hours as needed for as needed for pain Printed Prescription chlorhexidine topical (Peridex 0.12% mucous membrane liquid) 15 Milliliter(s) Oral Two Times A Day (swish and spit; do not swallow) Printed Prescription Penicillin V Potassium (penicillin V potassium 500 mg oral tablet) 1 Tablet(s) Oral Every 6 Hours Duration: 7 Day(s) Printed Prescription The home medications listed are only as accurate as the information you provided. Please continue taking all of your medications prescribed by your Primary Care Provider unless specifically told to change or discontinue the medication. Please direct any questions regarding your home medications to your Primary Care Provider. Take your medications faithfully. Do NOT skip medication. Do NOT stop taking medications without the direction of a physician. Carry a list of your medications with you at all times, and take this medication list with you to your first follow up visit. Report any side effects. Avoid herbal remedies unless discussed with your physician. As part of your treatment plan, your physician may have prescribed a limited course of a controlled substance. This medication may be given to help people with moderate or severe pain or for other medical conditions, but there are risks involved with treatment. Common side effects may include nausea, constipation, drowsiness, sweating, itching, dry mouth, and rash. More serious side effects may include cognitive and motor impairment, like problems with thinking, concentrating, alertness, and movement (e.g. slowed reflexes), and driving and operating heavy machinery can be dangerous. It is important for you to talk to your physician if you have these side effects or questions. These controlled substances can produce physical dependence and be habit-forming if taken for an extended period of time, which means that the body has gotten used to them and may experience withdrawal symptoms if they are abruptly stopped. Withdrawal symptoms can include runny nose, sweating, goose bumps, diarrhea, abdominal cramping, rapid heartbeat, difficulty sleeping, and nervousness. Please dispose of unused and medications per pharmacy guidance. Test Results Laboratory or Other Results This Visit (last charted value for your 02/19/2019 visit) Endocrinology 02/19/19 21:17:00 HCG Urine Qualitative: Negative Computed Tomography 02/19/19 21:50:29 CT Max Facial Area WO: CT Max Facial Area WO 02/19/19 21:49:24 CT Head WO: CT Head WO Education Materials Jaw Fracture Eating Plan A break (fracture) of the jaw bone often needs surgery for treatment. After surgery, you will need to eat foods that can be blended so that they can be sipped from a straw or given through a syringe. Work with a diet and holistic nutritionist (dietitian) to create an eating plan that helps you get the nutrients you need in order to heal and stay healthy. What are tips for following this plan? General guidelines ??? All foods in this plan must be blended. Avoid nuts, seeds, skins, peels, bones, or any foods that cannot be blended to the right consistency. ??? Ask your health care provider about taking a liquid multivitamin to make sure that you get all the vitamins and minerals you need. Cooking ??? Before blending, remove any skins, seeds, or peels from food. ??? Cook meats and vegetables until tender. ??? Cut foods into small pieces and mix with a small amount of liquid in a seafood manager or priming powder premix blender. Continue to add liquid until the food becomes thin enough to sip through a straw. ??? Add liquids such as juice, milk, cream, broth, gravy, or vegetable juice to help add flavor to foods. ??? Heat foods after they have been blended, not before. This reduces the amount of foam created from blending. ??? If you need to increase calories in food: ? Add protein powder or powdered milk to foods. ? Cook with fats, such as margarine (without trans fat), sour cream, cream cheese, cream, or nut butters. ? Prepare foods with sweeteners, such as honey, ice cream, blackstrap molasses, or sugar. Meal planning ??? Eat at least three meals and three snacks daily. It is important to make sure that you get enough calories and protein to prevent weight loss and help your body heal, especially after surgery. ??? Eat a variety of foods from each food group every day, including fruits and vegetables, protein, whole grains, dairy, and healthy fats. ??? If your teeth and mouth are sensitive to extreme temperatures, heat or cool your foods to lukewarm temperatures. What foods are recommended? The items listed may not be a complete list. Talk with your dietitian about what dietary choices are best for you. Grains Hot cereals, such as oatmeal, grits, ground wheat cereals, and polenta. Rice and pasta. Couscous. Vegetables All cooked or canned vegetables, without seeds and skins. Vegetable juices. Cooked potatoes, without skins. Fruits Any cooked or canned fruits, without seeds and skins. Fresh, peeled soft fruits, such as bananas and peaches, that can be blended until smooth. All fruit juices, without seeds and skins. Meat and other protein foods Soft-boiled eggs, scrambled eggs, powdered eggs, pasteurized egg mixtures, and custard. Ground meats, such as hamburger, turkey, sausage, and meatloaf. Tender, well-cooked meat, poultry, and fish, prepared without bones or skin. Soft soy foods, such as tofu. Smooth nut butters. Liquid egg substitutes. Dairy Milk. Cheese. Yogurt. Cottage cheese. Pudding. Beverages Coffee (regular or decaffeinated), tea, and mineral water. Liquid supplements that have protein and calories. Fats and oils Any oils. Melted margarine or butter. Ghee. Sour cream. Cream cheese. Avocado. Seasoning and other foods All seasonings and condiments that blend well. Ground spices. Finely ground seeds and nuts. Mustard or any smooth condiment. Summary ??? Foods in this plan need to be prepared so that they can be sipped from a straw or given through a syringe. Try to have at least three meals and three snacks daily. ??? Avoid nuts, seeds, skins, peels, bones, or any foods that cannot be blended to the right consistency. Make sure you eat a variety of foods from each food group every day. ??? Include a liquid multivitamin in your plan as told by your health care provider or dietitian. This information is not intended to replace advice given to you by your health care provider. Make sure you discuss any questions you have with your health care provider. Document Released: 02/25/2011 Document Revised: 12/15/2017 Document Reviewed: 12/15/2017 [employer] Patient Education ?? 2019 [employer] Mandibular Fracture A mandibular fracture is a break in the jawbone. What are the causes? The most common cause of this injury is a direct blow (trauma) to the jaw. This can happen from: ??? A car crash. ??? Physical violence. ??? A fall from a high place. What are the signs or symptoms? Symptoms of this injury include: ??? Pain. ??? Swelling. ??? Difficulty closing the mouth. ??? Feeling that your teeth are not aligned properly when you close your mouth (malocclusion). ??? Difficulty speaking. ??? Difficulty swallowing. How is this diagnosed? This injury may be diagnosed with a medical history and physical exam. Your health care provider may order imaging tests, such as an X-ray or CT scan. How is this treated? This injury may be treated with: ??? Rest. For mild fractures, resting the jaw may be the only treatment needed. ??? Surgery to put the jaw back in the right position. During surgery, wires are usually placed around the teeth to hold the jaw in place while it heals. ??? Taking medicine for pain. ??? Applying ice to the jaw. This can help with pain and swelling. ??? Eating a soft or liquid diet. Follow these instructions at home: ??? If directed, apply ice to the injured area: ? Put ice in a plastic bag. ? Place a towel between your skin and the bag. ? Leave the ice on for 20 minutes, 2???3 times per day. ??? Take cyyk-qgb-nzzrfhb and prescription medicines only as told by your health care provider. ??? Eat a well-balanced, high-protein soft or liquid diet as told by your health care provider. ??? Sleep on your back to avoid putting pressure on your jaw. ??? Avoid exercising to the point that you become short of breath. Contact a health care provider if: ??? You have a severe headache. ??? Parts of your face feel numb. ??? You have severe jaw pain that is not relieved with medicine. ??? You have uncontrollable nausea or anxiety. ??? Your swelling or redness gets worse. Get help right away if: ??? You have a fever. ??? You have difficulty breathing. ??? You feel like your airway is tightening. ??? You cannot swallow your saliva. ??? You make a high-pitched whistling sound when you breathe (wheezing). This information is not intended to replace advice given to you by your health care provider. Make sure you discuss any questions you have with your health care provider. Document Released: 09/07/2006 Document Revised: 10/09/2016 Document Reviewed: 06/01/2016 [employer] Interactive Patient Education ?? 2019 [employer] Emergency Awareness and Preventative Care STROKE is an EMERGENCY Every Minute Counts Act FAST and Check for these signs: FACE Does the face look uneven? ARM Does one arm drift down? SPEECH Does their speech sound strange? TIME Call at any sign of stroke Stroke Risk Factors Atrial Fibrillation (irregular heartbeat) Diabetes Family history of stroke Heart Disease Heavy alcohol use High Blood Pressure High Cholesterol Physical inactivity and obesity Smoking Cigarette Smoking The facts are clear, cigarette smoking will shorten your life. Smoking can cause many illnesses along the way. As a healthcare provider, we recommend that you stop smoking. Assistance with quitting is available by contacting 0-246-VXQZNOW. This is a free resource providing counseling, support, and referral. Or you may contact your personal physician. [employer] Suicide Prevention Lifeline: The National Suicide Prevention Lifeline is a national network of local crisis centers that provides free and confidential emotional support to people in suicidal crisis or emotional distress 24 hours a day, 7 days a week. Don't Wait! Stop a Heart Attack Before it Starts What is a heart attack? A heart attack is damage or to a part of the heart from severely decreased or lack of blood flow to the heart. Over time, arteries can become narrow from the buildup of fat and cholesterol, which is called plaque. The plaque can rupture causing a blood clot to form. When the blood clot forms, the artery can become severely narrowed or completely blocked, causing a heart attack. Heart attack is the leading cause of in the [place]. 85% of muscle damage occurs within the first 2 hours. Delay in the recognition of heart attack symptoms increases the chances of . Know the early symptoms of a heart attack: Nausea Feeling of fullness in chest Jaw Pain Pain that travels down one or both arms Fatigue/being tired Anxiety Back Pain Chest pressure, squeezing, or discomfort Shortness of breath Sweating, or a cold sweat Feeling of impending doom There are unusual signs of a heart attack, too! Women, the elderly, and diabetics may present with atypical symptoms: Fainting/dizziness Weakness Confusion Risk Factors for a Heart Attack Some heart disease risk factors, such as age and family history, cannot be changed. Others, like smoking and lack of exercise, can be changed. Smoking High Cholesterol High Blood Pressure Family History Obesity Age Gender (Males are at higher risk) Lack of Exercise Diabetes Diet Stress Excessive Alcohol Intake If you or someone you know is experiencing the signs and symptoms of a heart attack, DON???T DELAY. Call immediately and seek help. If someone collapses, perform CPR! Do not attempt to drive if you are having symptoms of heart attack. Hands-Only CPR Why Hands-Only CPR? Hands-Only CPR has been shown to be as effective as conventional CPR for cardiac arrests that occur outside of a hospital. Survival depends on immediately receiving CPR from someone nearby. How do you perform Hands-Only CPR? There are two easy steps: Call 9-1-1 if you see a teen or adult collapse Push hard and fast in the center of the chest at a beat of 100 beats per minute. Save a life! 4 WAYS TO GET AHEAD OF SEPSIS SEPSIS is a MEDICAL EMERGENCY. Time matters! Infections put you and your family at risk for a life-threatening condition called sepsis. Sepsis is the body's extreme response to an infection. It is life-threatening, and without timely treatment, sepsis can rapidly lead to tissue damage, organ failure, and . Sepsis happens when an infection you already have-in your skin, lungs, urinary tract or somewhere else-triggers a chain reaction throughout your body. 1 PREVENT INFECTIONS Take good care of chronic conditions. Talk to your doctor about getting the recommended vaccines. 2 PRACTICE GOOD HYGIENE Wash your hands frequently. Keep cuts or open sores clean and covered until they are healed. 3 KNOW THE SYMPTOMS Confusion or disorientation Shortness of breath High heart rate Fever, shivering, or feeling very cold Extreme pain or discomfort Clammy or sweaty skin 4 ACT FAST Get medical care IMMEDIATELY if you suspect sepsis or if you have an infection that is not getting better or is getting worse. To learn more about sepsis and how to prevent infections, visit www.cdc.gov/sepsis. The examination and treatment you have received in the Emergency Department has been done to provide an appropriate evaluation and stabilizing treatment on an emergency basis only. Given the limited resources, it is not meant to be a substitute for complete medical care. The follow-up doctor you named will receive a copy of your records and all test reports. IT IS IMPORTANT THAT YOU SCHEDULE A FOLLOW-UP APPOINTMENT AND ARE RE-EVALUATED. You should report any new complaints, symptoms, or remaining problems at that time. IT IS IMPOSSIBLE FOR THE EMERGENCY DEPARTMENT TO RECOGNIZE AND TREAT ALL ELEMENTS OF INJURY OR ILLNESS IN A SINGLE VISIT. If you have been referred to a specialist physician, it means that we believe you may have a condition that requires the expertise of a specialist. These physicians work in partnership with the hospital and have agreed to see referred patients in their office for further evaluation. KEEP IN MIND THAT THE SPECIALIST HAS HIS/HER OWN OFFICE POLICIES WHICH MAY REQUIRE PROPER INSURANCE OR PAYMENT UP FRONT BEFORE THE SPECIALIST WILL SEE YOU. It is your responsibility to call the specialist physician to make an appointment. We do not have the ability to refer patients to specialists/physicians that work with specific insurance companies. Please be advised that all financial charges or billing practices are determined by that practice, not the hospital. If your insurance company requires that you see a specialist from their approved list, it is your responsibility to contact your insurance company to make those arrangements. It is also your responsibility to follow any other requirements of your insurance company necessary to obtain coverage for claims submitted. We will bill your insurance; however, you are responsible today for any co-pay amounts. You will receive a separate bill for any services you may have received including: emergency, radiology, or pathology physicians. Patient Name:JOSSIE ACEVEDO I have received this information and was given the opportunity to ask questions. Patient/Track Announcer Name: Patient/Track Announcer Signature: Relationship to Patient: Clinician/Hospital Track Announcer Signature: Please Provide a Telephone Number Where You Can Be Reached: Is it Permissible To Leave a Message? Date: documented in this encounter Plan of Treatment Not on file documented as of this encounter Visit Diagnoses Not on filedocumented in this encounter
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
--- OUTSIDE RECORDS SUMMARY | 2025-09-12 05:57 | XMS_ITS | Encounter Summary ---
Author Organization [employer] ([place], [place], [place], [place], [place]) Address [address] [place] [address] Care Team Providers Care Propellant Charge Loader Name Role Phone Unavailable Primary Care Provider Unavailabl e Encounter Details Date Type Department Care Team (Late st Contact Info) Description 02/20/[address] [facility] [place] [facility] [place] [address] ProviderMohan MD [address], [place] [id number] Social History Tobacco Use Types Packs/Day Years Used Date Smoking Tobacco: Never Assessed Comments Unknown Sex and Gender Information Value Date Recorded Sex Assigned at Female 03/18/2022 6:17 PM CDT Legal Sex Female 6:17 PM CDT Gender Identity Female 03/18/2022 6:17 PM CDT Sexual Orientation Not on file documented as of this encounter Miscellaneous Notes * Cerner Conversion Note - Historical ProviderMD - 02/20/2019 11:45 AM CDT CR Chest 1 Vw Portable Ordered: 02/19/2019 Modified Reason for Exam: bruising upper/central chest s/p trauma, pain 02/20/2019 10:10 02/20/2019 11:45 (MALACHI LAYTON PA) Reviewed by Provider, No further action required x1 documented in this encounter Plan of Treatment Not on file documented as of this encounter Visit Diagnoses Not on filedocumented in this encounter
--- OUTSIDE RECORDS SUMMARY | 2025-09-12 05:57 | XMS_ITS | Referral Summary ---
Author Organization [employer] ([place], [place], [place], [place], [place]) Address [address] [place] [address] Care Team Providers Care Chiller Operator Name Role Phone Unavailable Primary Care [...]
--- OUTSIDE RECORDS SUMMARY | 2025-09-12 05:57 | XMS_ITS | Encounter Summary ---
Author Organization [employer] ([place], [place], [place], [place], [place]) Address [address] [place] [address] Care Team Providers Care Tombstone Erector Helper Name Role Phone Unavailable Primary Care Provider Unavailabl e Encounter Details Date Type Department Care Team (Late st Contact Info) Description 03/28/2020 Transcribed Document [facility] [place] [facility] [place] [address] ProviderMohan MD [address] [place] [address] Social History Tobacco Use Types Packs/Day Years [...] Conversion Note - Historical ProviderMD - 03/28/2020 6:39 PM CDT [place] Suicide Severity Rating Scale (C-SSRS) Entered On: 03/28/2020 19:33 EDT Performed On: 03/28/2020 19:31 EDT by Cait Vivar RN [place] Suicide Severity Rating Scale (C-SSRS) CSSRS Past Month Wish to be : No CSSRS Past Month Suicidal Thoughts : No CSSRS Lifetime Suicide Behavior : No Suicide Severity Rating Score : 0 Suicide Severity Rating : No Additional Care Required at this time Cait Vivar RN - 03/28/2020 19:31 EDT documented in this encounter Plan of Treatment Not on file documented as of this encounter Visit Diagnoses Not on filedocumented in this encounter
--- OUTSIDE RECORDS SUMMARY | 2025-09-12 05:57 | XMS_ITS | Encounter Summary ---
Author Organization [employer] ([place], [place], [place], [place], [place]) Address [address] [place] [address] Care Team Providers Care Video Production Assistant Name Role Phone Unavailable Primary Care Provider Unavailabl e Encounter Details Date Type Department Care Team (Late st Contact Info) Description 02/19/2019 Transcribed Document [facility] [place] [facility] [place] [address] ProviderMohan MD [facility] [address] [place], [place] [id number] Social History Tobacco Use Types Packs/Day Years [...] Conversion Note - Mohan ProviderMD - 02/19/2019 11:47 PM CDT ED Discharge Entered On: 02/19/2019 23:47 EDT Performed On: 02/19/2019 23:47 EDT by Vivian Canales RN Discharge Process Patient Disposition : Discharge Patient Education Completed : Yes Teaching Evaluation : Verbalizes understanding Nursing Documentation Completed : Yes Vivian Canales RN - 02/19/2019 23:47 EDT ED Discharge Discharge To : Home with ambulatory/outpatient follow-up Mode Of Departure : Ambulatory Accompanied By : Unaccompanied Discharge Instructions Reviewed With, Opportunity For Questions Given : Patient Prescriptions Given to Patient : Yes Number of Prescriptions Given : 3 Vivian Canales RN - 02/19/2019 23:47 EDT documented in this encounter Plan of Treatment Not on file documented as of this encounter Visit Diagnoses Not on filedocumented in this encounter
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
--- OUTSIDE RECORDS SUMMARY | 2025-09-12 05:57 | XMS_ITS | Encounter Summary ---
Author Organization [employer] ([place], [place], [place], [place], [place]) Address [address] [place] [address] Care Team Providers Care Construction Rigger Name Role Phone Unavailable Primary Care Provider Unavailabl e Encounter Details Date Type Department Care Team (Late st Contact Info) Description 06/11/2019 Transcribed Document [facility] [place] [facility] [place] [address] ProviderMohan MD [facility] [place] [address] Social History Tobacco Use Types Packs/Day Years Used Date Smoking Tobacco: Never Assessed Comments Unknown Sex and Gender Information Value Date Recorded Sex Assigned at Female 03/18/2022 6:17 PM CDT Legal Sex Female 6:17 PM CDT Gender Identity Female 03/18/2022 6:17 PM CDT Sexual Orientation Not on file documented as of this encounter Miscellaneous Notes * Cerner Conversion Note - Mohan Mcghee MD - 06/11/2019 2:50 AM CDT [facility] [place] [address] [address] :1980 Visit Time:06/11/2019 Your Visit Summary Your Care Team Admitting Physician - GALILEO DHALIWAL MD-EMR DENISE, UNKNOWN Attending Physician - GALILEO DHALIWAL MD-EMR Primary Care Physician - LEN WALKER DR Referring Physician - GALILEO DHALIWAL MD-EMR Your Diagnosis Anxiety Anxiety reaction Anxious Panic attack Medical Information You may obtain a copy of your Emergency Department [...] do next Follow-Up Appointments Follow Up with [facility] (Find a Doc) When Within 2 to 3 days Where: [place] [address]- [facility] (1) Follow Up with Follow up with primary care provider When Within 2 to 3 days Allergies No Known Allergies Immunizations This Visit No Immunizations Found Medications What How Much When Instructions Next Dose New hydrOXYzine (hydrOXYzine pamoate 25 mg oral capsule) 1 Capsule(s) Oral Four Times A Day as needed for as needed for anxiety Printed Prescription The home medications listed are [...] This Visit (last charted value for your 06/11/2019 visit) No Laboratory or Other Results This Visit Education Materials Panic Attack A panic attack is a sudden episode of severe anxiety, fear, or discomfort that causes physical and emotional symptoms. The attack may be in response to something frightening, or it may occur for no known reason. Symptoms of a panic attack can be similar to symptoms of a heart attack or stroke. It is important to see your health care provider when you have a panic attack so that these conditions can be ruled out. A panic attack is a symptom of another condition. Most panic attacks go away with treatment of the underlying problem. If you have panic attacks often, you may have a condition called panic disorder. What are the causes? A panic attack may be caused by: ??? An extreme, life-threatening situation, such as a war or natural disaster. ??? An anxiety disorder, such as post-traumatic stress disorder. ??? Depression. ??? Certain medical conditions, including heart problems, neurological conditions, and infections. ??? Certain guzw-wtq-ztpphws and prescription medicines. ??? Illegal drugs that increase heart rate and blood pressure, such as methamphetamine. ??? Alcohol. ??? Supplements that increase anxiety. ??? Panic disorder. What increases the risk? You are more likely to develop this condition if: ??? You have an anxiety disorder. ??? You have another mental health condition. ??? You take certain medicines. ??? You use alcohol, illegal drugs, or other substances. ??? You are under extreme stress. ??? A life event is causing increased feelings of anxiety and depression. What are the signs or symptoms? A panic attack starts suddenly, usually lasts about 20 minutes, and occurs with one or more of the following: ??? A pounding heart. ??? A feeling that your heart is beating irregularly or faster than normal (palpitations). ??? Sweating. ??? Trembling or shaking. ??? Shortness of breath or feeling smothered. ??? Feeling choked. ??? Chest pain or discomfort. ??? Nausea or a strange feeling in your stomach. ??? Dizziness, feeling lightheaded, or feeling like you might faint. ??? Chills or hot flashes. ??? Numbness or tingling in your lips, hands, or feet. ??? Feeling confused, or feeling that you are not yourself. ??? Fear of losing control or being emotionally unstable. ??? Fear of dying. How is this diagnosed? A panic attack is diagnosed with an assessment by your health care provider. During the assessment your health care provider will ask questions about: ??? Your history of anxiety, depression, and panic attacks. ??? Your medical history. ??? Whether you drink alcohol, use illegal drugs, take supplements, or take medicines. Be honest about your substance use. Your health care provider may also: ??? Order blood tests or other kinds of tests to rule out serious medical conditions. ??? Refer you to a mental health professional for further evaluation. How is this treated? Treatment depends on the cause of the panic attack: ??? If the cause is a medical problem, your health care provider will either treat that problem or refer you to a specialist. ??? If the cause is emotional, you may be given anti-anxiety medicines or referred to a counselor. These medicines may reduce how often attacks happen, reduce how severe the attacks are, and lower anxiety. ??? If the cause is a medicine, your health care provider may tell you to stop the medicine, change your dose, or take a different medicine. ??? If the cause is a drug, treatment may involve letting the drug wear off and taking medicine to help the drug leave your body or to counteract its effects. Attacks caused by drug abuse may continue even if you stop using the drug. Follow these instructions at home: ??? Take ubjm-lyf-bwiurja and prescription medicines only as told by your health care provider. ??? If you feel anxious, limit your caffeine intake. ??? Take good care of your physical and mental health by: ? Eating a balanced diet that includes plenty of fresh fruits and vegetables, whole grains, lean meats, and low-fat dairy. ? Getting plenty of rest. Try to get 7???8 hours of uninterrupted sleep each night. ? Exercising regularly. Try to get 30 minutes of physical activity at least 5 days a week. ? Not smoking. Talk to your health care provider if you need help quitting. ? Limiting alcohol intake to no more than 1 drink a day for non women and 2 drinks a day for men. One drink equals 12 oz of beer, 5 oz of wine, or 1?? oz of hard liquor. ??? Keep all follow-up visits as told by your health care provider. This is important. Panic attacks may have underlying physical or emotional problems that take time to accurately diagnose. Contact a health care provider if: ??? Your symptoms do not improve, or they get worse. ??? You are not able to take your medicine as prescribed because of side effects. Get help right away if: ??? You have serious thoughts about hurting yourself or others. ??? You have symptoms of a panic attack. Do not drive yourself to the hospital. Have someone else drive you or call an ambulance. If you ever feel like you may hurt yourself or others, or you have thoughts about taking your own life, get help right away. You can go to your nearest emergency department or call: ??? Your local emergency services (911 in the [place] ??? A suicide crisis helpline, such as the National Suicide Prevention Lifeline at . This is open 24 hours a day. Summary ??? A panic attack is a sign of a serious health or mental health condition. Get help right away. Do not drive yourself to the hospital. Have someone else drive you or call an ambulance. ??? Always see a health care provider to have the reasons for the panic attack correctly diagnosed. ??? If your panic attack was caused by a physical problem, follow your health care provider's suggestions for medicine, referral to a specialist, and lifestyle changes. ??? If your panic attack was caused by an emotional problem, follow through with counseling from a qualified mental health specialist. ??? If you feel like you may hurt yourself or others, call 911 and get help right away. This information is not intended to replace advice given to you by your health care provider. Make sure you discuss any questions you have with your health care provider. Document Released: 09/07/2006 Document Revised: 10/16/2017 Document Reviewed: 10/16/2017 [employer] Patient Education ?? 2019 [employer] Emergency Awareness and Preventative Care STROKE [...] Assistance with quitting is available by contacting 2-896-VOAUNOW. This is a free resource providing counseling, support, and referral. Or you may contact your personal physician. [employer] Suicide Prevention Lifeline: The National Suicide Prevention [...] CPR? There are two easy steps: Call if you see a teen or adult [...] emergency, radiology, or pathology physicians. Patient Name:JOSSIE RUSH I have received this information and was given the opportunity to ask questions. Patient/Destination Imagination Coordinator Name: Patient/Destination Imagination Coordinator Signature: Relationship to Patient: Clinician/Hospital Destination Imagination Coordinator Signature: Please Provide a Telephone Number Where You Can Be Reached: Is it Permissible To Leave a Message? Date: documented in this encounter Plan of Treatment Not on file documented as of this encounter Visit Diagnoses Not on filedocumented in this encounter
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
--- OUTSIDE RECORDS SUMMARY | 2025-09-12 05:57 | XMS_ITS | Encounter Summary ---
Author Organization [employer] ([place], [place], [place], [place], [place]) Address [address] [place] [address] Care Team Providers Care School Speech Therapist Name Role Phone Unavailable Primary Care Provider Unavailabl e Encounter Details Date Type Department Care Team (Late st Contact Info) Description 02/19/2019 Transcribed Document [facility] [place] [facility] [address] ProviderMohan MD [address] [place], [place] [id number] Social History Tobacco Use Types Packs/Day Years Used Date Smoking Tobacco: Never Assessed Comments Unknown Sex and Gender Information Value Date Recorded Sex Assigned at Female 03/18/2022 6:17 PM CDT Legal Sex Female 6:17 PM CDT Gender Identity Female 03/18/2022 6:17 PM CDT Sexual Orientation Not on file documented as of this encounter Miscellaneous Notes * Mynor Conversion Note - Historical ProviderMD - 02/19/2019 11:29 PM CDT Electronically signed by Bridget [facility] Conversion Screedman/Laborer Mynor at 01/09/2023 10:45 AM CDT documented in this encounter Plan of Treatment Not on file documented as of this encounter Visit Diagnoses Not on filedocumented in this encounter
--- OUTSIDE RECORDS SUMMARY | 2025-09-12 05:57 | XMS_ITS | Encounter Summary ---
Author Organization [employer] ([place], [place], [place], [place], [place]) Address [address] [place] [address] Care Team Providers Care Blade Grader Operator Name Role Phone Unavailable Primary Care Provider Unavailabl e Encounter Details Date Type Department Care Team (Late st Contact Info) Description 06/11/2019 Transcribed Document [facility] [place] [facility] [place] [facility] [place] [address] ProviderMohan MD [facility] [address] Social History Tobacco Use Types [...] ProviderMD - 06/11/2019 2:03 AM CDT ED Assessment Entered On: 06/11/2019 2:36 EDT Performed On: 06/11/2019 2:28 EDT by NICK FERNANDEZ RN ED Quick Look Assessment Level of Consciousness : Alert, Awake Affect/Behavior : Anxious Orientation : Oriented x 4 Skin Temperature : Warm Skin Description : Normal for ethnicity NICK FERNANDEZ RN - 06/11/2019 2:28 EDT ED General-Functional Assess Preferred Communication Mode : Verbal Communication Barrier : None Primary Language : Cypriot Any Spiritual/Cultural Needs or Requests : No Currently in Unsafe Situation : No NICK FERNANDEZ RN - 06/11/2019 2:28 EDT ED Psychosocial Assessment Affect/Behavior : Anxious (Comment: H/O PTSD, ANDREI, BIPOLAR, ADHD [NICK FERNANDEZ RN - 06/11/2019 2:28 EDT] ) NICK FERNANDEZ RN - 06/11/2019 2:28 EDT Social Habits Smoking Status : 5-9 cigarettes (between 1/4 to 1/2 pack)/day in last 30 days Smokeless Tobacco Status : Never Desires Tobacco Cessation Medication : No Reason for No Tobacco Cessation Medication : ED/procedural patient only Desires Tobacco Cessation Calc : 1 NICK FERNANDEZ RN - 06/11/2019 2:28 EDT Social History (As Of: 06/11/2019 02:36:21 EDT) Tobacco: 5-9 cigarettes (between 1/4 to 1/2 pack)/day in last 30 days Smoking Status. (Last Updated: 02/19/2019 18:32:12 EDT by Nicolasa Lemos RN) Respiratory Breath Sounds Auscultated : Posterior, Anterior Respiratory Assessment WDL : WDL with exceptions (Comment: PT REPORTS HYPERVENTILATING EARLIER TODAY R/T ANXIETY. PT DENIES ANY OTHER S/S. [NICK FERNANDEZ RN - 06/11/2019 2:28 EDT] ) NICK FERNANDEZ RN - 06/11/2019 2:28 EDT Breath Sounds Assessment Grid All Lobes Breath Sounds : Clear NICK FERNANDEZ RN - 06/11/2019 2:28 EDT Neurologic ASMT, ED Neurologic Assessment WDL : WDL with exceptions Affect/Behavior : Anxious (Comment: PT REPORTS SHE HAS BEEN ANXIOUS ALL DAY. PT STATES SHE USE TO BE ON VALIUM AND IS NOT ON ANYTHING AT THE MOMENT. PT HAS AN APT C PSYCHIATRIST ON . [NICK FERNANDEZ RN - 06/11/2019 2:28 EDT] ) NICK FERNANDEZ RN - 06/11/2019 2:28 EDT documented in this encounter Plan of Treatment Not on file documented as of this encounter Visit Diagnoses Not on filedocumented in this encounter
--- OUTSIDE RECORDS SUMMARY | 2025-09-12 05:57 | XMS_ITS | Encounter Summary ---
Author Organization [employer] ([place], [place], [place], [place], [place]) Address [address] [place] [address] Care Team Providers Care Senior Sas Developer Name Role Phone Unavailable Primary Care Provider Unavailabl e Encounter Details Date Type Department Care Team (Late st Contact Info) Description 06/11/2019 Transcribed Document [facility] [place] [facility] [place] [address] ProviderMohan MD [address] [place] [address] Social History Tobacco Use Types [...] Conversion Note - Historical ProviderMD - 06/11/2019 8:11 PM CDT CR Chest 1 Vw Portable Ordered: 06/11/2019 Modified Reason for Exam: SOA 06/11/2019 15:32 06/11/2019 20:11 (MICHELE ROSSI PA) Reviewed by Provider, No further action required x1 documented in this encounter Plan of Treatment Not on file documented as of this encounter Visit Diagnoses Not on filedocumented in this encounter
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
--- OUTSIDE RECORDS SUMMARY | 2025-09-12 05:57 | XMS_ITS | Encounter Summary ---
Author Organization [employer] ([place], [place], [place], [place], [place]) Address [address] [place] [address] Care Team Providers Care Minister Helper Name Role Phone Unavailable Primary Care Provider Unavailabl e Encounter Details Date Type Department Care Team (Late st Contact Info) Description 03/28/2020 Transcribed Document [facility] [place] [facility] [place] [address] ProviderMohan MD [address], [place] [id number] Social History Tobacco Use Types Packs/Day Years [...] Conversion Note - Historical ProviderMD - 03/28/2020 8:00 PM CDT ED Event Note Entered On: 03/28/2020 21:06 EDT Performed On: 03/28/2020 20:00 EDT by Cait Vivar RN ED Event Note ED Event Date/Time : 03/28/2020 20:00 EDT ED Description of Event : RN to patients room, patient was not in room. attempted to locate and not found. Cait Vivar RN - 03/28/2020 21:05 EDT documented in this encounter Plan of Treatment Not on file documented as of this encounter Visit Diagnoses Not on filedocumented in this encounter
[2025-09-12 06:01] VITALS: BP 173/109; PULSE 100; RESP 18; TEMP 36.6; O2SAT 99; BMI 21.7
[2025-09-12 06:47] LABS: Microscopic, Urine URINE MICROSCOPIC (MICROSCOPIC)
--- NOTE | 2025-09-12 06:51 | HMH.EDGENADL ---
Discharge Plan Disposition Patient Disposition: Home, Self-Care Condition: Good Prescriptions Prescriptions: New acyclovir 800 mg tablet 800 mg PO BID Qty: 10 0RF No Action metronidazole 500 mg tablet 500 mg PO BID 7 Days Qty: 14 0RF triamcinolone acetonide 0.025 % ointment 1 applic topical BID PRN (Reason: rash) Qty: 15 0RF Referrals Follow up/Referrals: Jean-Paul Watts APRN [Primary Care Provider, Family Practice] - See instructions Activity Restrictions/Add. Instructions Additional Instructions/Restrictions: You were evaluated in the ER and are believed to be appropriate for discharge at this time. If you have positive results from your pending tests that require medications, you will receive a phone call. You can also find the results of these tests in your patient portal. Make an appointment with your primary care doctor for reevaluation in 2 to 3 days. I recommend practicing safe sex with barrier contraception (condoms) for STD prevention. Do not have sex until your symptoms are resolved and you have completed your medications. Take the prescribed acyclovir as directed. Do not skip doses, do not stop taking it early. I recommend having any sexual partners tested and treated. Follow-up with your primary care doctor. Return to the ER with new, worsening, or otherwise concerning symptoms Clinical Impressions Clinical Impression: Vaginal burning, Vaginal lesion Instructions Patient Instructions: DI for Urinary Tract Infection (UTI), DI for Urinary Tract Infection in Children Print Language Print Language: Ghanaian Discharge ED Provider: Hoang Chawla General Adult HPI General Chief complaint: Urogenital-Female Stated complaint: Congestion in chest; Possible UTI Time Seen by Provider: 09/12/25 06:00 Mode of Arrival: Ambulatory Source of Information: Patient Description of Symptoms (Recalled from ER Triage Doc. by RN): Pt presents with concerns of a UTI and URI. States she has had unprotected intercourse with multiple partners and needs some Flagyl. Pt reports itching and discomfort accompanied with discharge over the past 5 days. Has had a dry cough but she believes its related to smoking. History of Present Illness HPI narrative: 45-year-old female presents to the ER complaining of vaginal itching and burning. She is requesting Flagyl stating she has a fishy odor and has had unprotected sex with multiple partners. Patient states she has had a mild dry cough but this has been chronic and unchanged, she believes it is related to smoking. No fevers, chills, chest pain, difficulty breathing, she states she has some mild exterior burning with urination with increased discharge. She denies fevers, chills, chest pain, vomiting, diarrhea. She states she has no pain with intercourse. No abnormal vaginal bleeding. She would like to be tested for STD. Related Data Previous Rx's ?Medication ?Instructions ?Recorded metronidazole 500 mg tablet 500 mg PO BID 7 days #14 tabs 05/24/25 triamcinolone acetonide 0.025 % 1 applic topical BID PRN rash #15 05/24/25 topical ointment grams acyclovir 800 mg tablet 800 mg PO BID #10 tabs 09/12/25 Allergies Allergy/AdvReac Type Severity Reaction Status Date / Time No Known Allergies Allergy Verified 05/24/25 19:07 [facility] Disclaimer: The information contained in this section may have been updated after the patient was seen, as this information can be updated by other users. Medical History Hepatitis C Surgical History History of delivery Family History Other Heart attack Hypertension Social History Smoking Status: Current every day smoker tobacco type: cigarettes packs per day: 1 alcohol intake: never substance use type: marijuana, crack/cocaine, painkillers and prescription drug current occupational status: other Travel in the last 8 weeks?: None Have you lived/traveled outside [place] in past 30 days?: No Contact w/someone who lives/traveled outside [place] past 30 days?: No Exposure to someone with infectious disease in past 14 days?: No Do you have a fever (greater than 100.4 F or 38 C)?: No Have you tested positive for COVID-19?: No Exposed to someone with COVID-19 in past 14 days?: No Do you have a sore throat?: No Do you have a cough?: Yes Do you have any weakness?: No Do you have any diarrhea?: No Are you experiencing any unusual bleeding?: No Do you have any muscle aches/pain?: No Do you have any abdominal pain?: No Are you experiencing loss of taste or smell?: No Other Medical History Have you received the Flu Vaccine for this season: No Have you received the Pneumonia Vaccine: No ROS Obtained: Yes Systems reviewed as appropriate & no additional complaints except as documented Per HPI Physical Exam General General appearance: alert and in no apparent distress Head Head exam: atraumatic and normocephalic Eye Eye exam: Present PERRL and EOMI ENT ENT exam: Present mucous membranes moist Neck Neck exam: Present normal inspection and full ROM Chest Chest inspection: Present symmetric chest wall rise Respiratory Respiratory exam: Absent respiratory distress or stridor Cardiovascular Cardiovascular exam: Present regular rate and normal rhythm Abdominal Exam Abdominal exam: Present soft; Absent distention, tenderness, guarding or rebound External exam: Present lesions (2 mm isolated lesion on the mucosa near the urethra that has a red base and a vesicular appearing top, tender) Speculum exam: Present vaginal discharge (Thick, white); Absent vaginal bleeding or laceration Bimanual exam: Present normal bimanual exam Extremities Exam Extremities exam: Present full ROM and normal capillary refill; Absent edema Neurological Exam Neurological exam: Present alert and oriented X3; Absent motor sensory deficit Psychiatric Psychiatric exam: Present normal affect and normal mood Skin Skin exam: Present warm and dry Medical Decision Making Medical Records Medical records reviewed: Yes I reviewed the patient's medical records. Screening: Per USPSTF and CDC recommendations, given the prevalence of disease in our region, it is our hospital?s policy to screen for HIV and viral Hepatitis for all patients aged 18 and over and those with ongoing risk factors. Hi Inquiry Pt receiving controlled substance: No Vital Signs: 09/12/25 06:01 Temperature 97.9 F Temperature Source Oral Pulse Rate [Left] 100 H Respiratory Rate 18 Blood Pressure [Right Arm] 173/109 H Blood Pressure Mean [Right Arm] 130 Blood Pressure Source [Right Arm] Automatic Cuff Blood Pressure Position [Right Arm] Sitting 02 Sat by Pulse Oximetry 99 Oxygen Delivery Method Room Air Lab Data Lab Results 09/12/25 06:40: Urine Color Yellow, Urine Appearance Clear, Urine pH 6.0, Ur Specific [place] 1.025, Urine Protein Negative, Urine Glucose (UA) Negative, Urine Ketones Negative, Urine Blood Negative, Urine Nitrate Negative, Urine Bilirubin Negative, Urine Urobilinogen 0.2, Ur Leukocyte Esterase Trace Orders (Tests/Meds): ED MEDICATIONS Generic Name Dose Route Start Last Admin Trade Name Patria PRN Reason Stop Dose Admin Fluconazole 200 mg 09/12/25 09:00 Fluconazole 200mg Tablet PO 09/19/25 08:59 DAILY [facility] Category Date Time Status Urinalysis and Microscopic Stat Lab 09/12/25 06:40 Results Vaginitis Plus/HSV Stat Lab 09/12/25 06:40 Received Medical Decision Narrative: In summary, this 45-year-old female presents to the emergency department today with external vaginal discomfort and external burning with urination, vaginal itching, dry cough. On initial evaluation patient is hemodynamically stable, afebrile, GCS 15, independently ambulatory into the ER, overall well-appearing. Benign cardiopulmonary exam, exam performed with issue clerk KADIE Chairez present at bedside. There is thick white vaginal discharge as well as small lesion near the urethra with an erythematous base and vesicular top as described in physical exam. Remainder of speculum and bimanual exam benign. Differential diagnosis includes but is not limited to STI including HSV, gonorrhea, chlamydia, trichomonas, yeast infection, UTI. No evidence of PID. I do have increases patient for HSV given the abnormal lesion as well as exam findings consistent with yeast infection. Based on these concerns, I ordered vaginitis swab/HSV swab, UA. Swabs were collected during vaginal exam. Patient treated with Diflucan for yeast infection. Patient understands that the vaginitis swab will not result today but if she has positive results they will be called to her. UA negative for findings of infection. Acyclovir administered for empiric treatment of what I suspect to be HSV genital lesion. Patient is appropriate for discharge at this time. She is comfortable with the plan for follow-up of her results. She was given instructions on taking acyclovir which has been prescribed to her as well as safer sex instructions. Patient was given instructions on symptomatic management, follow up instructions, and return precautions for the emergency department. Patient indicated understanding and was discharged in stable condition. Critical Care Critical Care Time Critical Care Time: No
[2025-09-12 06:57] LABS: Bilirubin,Urine Negative (Negative); Color,Urine YELLOW (Yellow); Glucose,Urine (UA) Negative (Negative); Ketones,Urine Negative (Negative); Leukocyte Esterase,Urine TRACE (Negative); PH,Urine 6.0 (5.0-8.5); Protein,Urine Negative (Negative); Specific Gravity, Urine 1.025 (1.005-1.030); Urobilinogen,Urine 0.2 EU/dl (0.2)
[2025-09-12 07:12] VITALS: BP 149/134; PULSE 92; O2SAT 100
[2025-09-12] MEDS: FLUCONAZOLE 200MG TABLET 200 MG PO (07:21)
[2025-09-12] MEDS: ACYCLOVIR 400MG TAB 800 MG PO (07:29)
[2025-09-12 07:32] VITALS: BP 145/66; PULSE 76; RESP 16; TEMP 36.9; O2SAT 99
[2025-09-12 07:57] LABS: Bacteria,Urine Trace /lpf
[2025-09-12 08:00] LABS: Trichomonas,Urine Occasional /lpf
--- NOTE | 2025-09-13 01:15 | PC.NURSE ---
Call made to patient per Dr. Chawla request to inform of medication sent to [facility] pharmacy for test results. Patient did not answer, RENAE left
[2025-09-16 11:11] LABS: BVAB2 Moderate - 1 Score (.); Candida albicans NAA Negative (Negative); Candida glabrata Negative (Negative); HSV 1 NAA Negative (Negative); HSV 2 NAA Negative (Negative)
== END 2025-09-12 07:32 | disposition home or self-care (01) ==
PROVIDERS: Emergency Provider Emergency Medicine; PCP Nurse Practitioner Family
DX: N76.0 Acute vaginitis (principal); A59.01 Trichomonal vulvovaginitis
CPT/HCPCS: 81001; 87491; 87529; 87591; 87661; 87798; 87801; 99283; 99284